=== PATIENT | female | born 1935 | race Hispanic/Latino ===

== ENCOUNTER 2017-02-21 11:51 | Emergency (ER) | payer MEDICARE, BC ==
[2017-02-21 12:04] VITALS: BMI 23.2
[2017-02-21 12:07] VITALS: TEMP 98.5
--- NOTE | 2017-02-21 14:01 | ED PDOC ---
Arrival/HPI - General Chief Complaint: Trauma Time Seen by Provider: 02/21/17 12:18 Historian: Patient - History of Present Illness Narrative History of Present Illness (Text): 02/21/17 13:44 82yo female with PMHx of hypertension and hyperlipdemia present with complaint of right clavicular pain s/p trauma tis morning. States she tripped while walking this morning and landed on her right arm. Denies hitting head any where. States she did not take any medication for pain. Denies focal weakness, headache, dizziness, nausea, vomiting, not on any anticoagulant. Past Medical History - Provider Review Nursing Documentation Reviewed: Yes - Infectious Disease Hx of Infectious Diseases: None - Tetanus Immunization Tetanus Immunization: Up to Date - Cardiac Hx Cardiac Disorders: Yes Hx Hypertension: Yes Hx Pacemaker: No - Pulmonary Hx Respiratory Disorders: Yes Hx Pneumonia: Yes (02-21-14) - Neurological Hx Paralysis: No - HEENT Hx HEENT Disorder: Yes ([place] B/L EARS, wears glassees) Other/Comment: uses b/l hearing aids - Renal Hx Renal Disorder: No - Endocrine/Metabolic Hx Endocrine Disorders: No - Hematological/Oncological Hx Blood Transfusions: No - Integumentary Hx Dermatological Disorder: Yes (CELLULITIS BLE) Other/Comment: notes from prior visit/triage: right lower extremity edema, redness, warm, tender to touch, making it difficult to walk, was weeping 3 wks ago, +2 pitting edema, worse the last 3 days, redness from below knee to foot and right thigh - Musculoskeletal/Rheumatological Hx Musculoskeletal Disorders: Yes Hx Unsteady Gait: Yes Other/Comment: walks with cane - Gastrointestinal Hx Gastrointestinal Disorders: Yes Hx Gastroesophageal Reflux: Yes Hx Pancreatitis: Yes (PANCREATIC NEOPLASM) - Genitourinary/Gynecological Hx Genitourinary Disorders: No - Psychiatric Hx Emotional Abuse: No Hx Physical Abuse: No Hx Substance Use: No - Surgical History Other/Comment: R knee surgery - Anesthesia Hx Anesthesia: Yes Hx Anesthesia Reactions: No Hx Malignant Hyperthermia: No - Suicidal Assessment Feels Threatened In Home Enviroment: No Family/Social History - Physician Review Nursing Documentation Reviewed: Yes Family/Social History: Unknown Family HX Smoking Status: Never Smoked Hx Alcohol Use: No Hx Substance Use: No Hx Substance Use Treatment: No Allergies/Home Meds Allergies/Adverse Reactions: Allergies No Known Allergies Allergy (Verified 02/21/17 12:03) Home Medications: Home Meds Medication Instructions Recorded Confirmed Atenolol [Tenormin] 50 mg PO DAILY 02/21/17 02/21/17 Hydrocodone/Ibuprofen 2 tab PO DAILY 02/21/17 02/21/17 [Hydrocodone-Ibuprofen 7.5-200] Lipase/Protease/Amylase [Creon Dr 1 tab PO TID 02/21/17 02/21/17 24,000 Units Capsule] Lisinopril [Zestril] 10 mg PO DAILY 02/21/17 02/21/17 Meloxicam [Mobic] 15 mg PO BID 02/21/17 02/21/17 Omeprazole [Omeprazole] 40 mg PO DAILY 02/21/17 02/21/17 Oxycodone HCl [Roxicodone] 5 mg PO TID 02/21/17 02/21/17 Simvastatin [Zocor] 20 mg PO DAILY 02/21/17 02/21/17 Spironolactone [Aldactone] 25 mg PO BID 02/21/17 02/21/17 Review of Systems - Physician Review All systems were reviewed & negative as marked: Yes - Review of Systems Constitutional: Normal Eyes: Normal ENT: Normal Respiratory: Normal Cardiovascular: Normal Gastrointestinal: Normal Genitourinary Female: Normal Musculoskeletal: Arthralgias (Right clavicle) Skin: Normal Neurological: Normal Endocrine: Normal Hemo/Lymphatic: Normal Psychiatric: Normal Physical Exam Vital Signs Reviewed: Yes Vital Signs Temp Pulse Resp BP Pulse Ox 02/21/17 15:29 63 12 110/60 97 02/21/17 12:06 98.5 F 62 18 146/69 99 Temperature: Afebrile Blood Pressure: Normal Pulse: Regular Respiratory Rate: Normal Appearance: Positive for: Well-Appearing, Non-Toxic, Comfortable Pain Distress: None Mental Status: Positive for: Alert and Oriented X 3 - Systems Exam Head: Present: Atraumatic, Normocephalic Pupils: Present: PERRL Extroacular Muscles: Present: EOMI Conjunctiva: Present: Normal Mouth: Present: Moist Mucous Membranes Neck: Present: Normal Range of Motion. No: MIDLINE TENDERNESS, Paraspinal Tenderness Respiratory/Chest: Present: Clear to Auscultation, Good Air Exchange. No: Respiratory Distress, Accessory Muscle Use Cardiovascular: Present: Regular Rate and Rhythm, Normal S1, S2. No: Murmurs Abdomen: Present: Normal Bowel Sounds. No: Tenderness, Distention, Peritoneal Signs Back: Present: Normal Inspection Upper Extremity: Present: Normal ROM (right shoulder), NORMAL PULSES, Tenderness (Right mid clavicle), Neurovascularly Intact. No: Cyanosis, Edema, Swelling, Erythema, Temperature Abnormalties, Deformity Lower Extremity: Present: Normal Inspection. No: Edema Neurological: Present: GCS=15, CN II-XII Intact, Speech Normal Skin: Present: Warm, Dry, Normal Color. No: Rashes Psychiatric: Present: Alert, Oriented x 3, Normal Insight, Normal Concentration Medical Decision Making ED Course and Treatment: 02/21/17 18:19 Pt was ambulatory and have no focal neurological deficit in ED. She refused head CT. She understood that CT was ordered to r/o any internal derangement. She stated she understand, but did not hit her head any where and don't want the Head Ct. CS/ Right shoulder/ Clavicle xray - No acute finding Result was DW the pt. Arm was placed on a sling She was DC home with a rx of Tramadol Referred to her PMD/Ortho. TRT ED for any new or worsening symptoms. - RAD Interpretation Radiology Orders: 02/21/17 12:32 CERVICAL SPINE >18YR W/OBLIQUE [RAD] Stat CLAVICLE RIGHT [RAD] Stat 02/21/17 12:33 SHOULDER RIGHT [RAD] Stat - Medication Orders Current Medication Orders: Discontinued Medications Tramadol HCl (Ultram) 50 mg PO STAT STA Stop: 02/21/17 12:38 Tramadol HCl (Ultram) 50 mg PO STAT STA Stop: 02/21/17 12:48 Last Admin: 02/21/17 12:56 Dose: 50 mg Disposition/Present on Arrival - Present on Arrival Any Indicators Present on Arrival: No History of DVT/PE: No History of Uncontrolled Diabetes: No Urinary Catheter: No History of Decub. Ulcer: No History Surgical Site Infection Following: None - Disposition Have Diagnosis and Disposition been Completed?: Yes Diagnosis: Clavicle pain Disposition: HOME/ ROUTINE Disposition Time: 15:05 Patient Plan: Discharge Condition: STABLE Discharge Instructions (ExitCare): Shoulder Sprain (ED) Additional Instructions: Follow up with your Doctor Return to ED for any new or worsening symptoms Prescriptions: traMADol [Ultram] 50 mg PO TID #12 tab Referrals: Jerome Gale MD [Primary Care Provider] - Follow up with primary Jerome Carmona III, MD [Medical Doctor] - Follow up with primary
[2017-02-21 15:30] VITALS: BP 110/60; PULSE 63; RESP 12; O2SAT 97
--- NOTE | 2017-02-21 17:35 | RAD ---
PROCEDURE: Cervical Spine Radiographs. HISTORY: Pain. COMPARISON: None. FINDINGS: BONES: Alignment maintained. No fracture. Dens Intact. DISC SPACES: There is fusion at the C4-5 and C5-6 levels. There is disc degeneration at the remaining levels. SOFT TISSUES: Normal. No prevertebral soft tissue swelling. OTHER FINDINGS: None. IMPRESSION: Fusion C4-5 and C5-6. No acute findings
--- NOTE | 2017-02-21 17:35 | RAD ---
PROCEDURE: Radiographs of the right clavicle. HISTORY: right clavicle pain s/p trauma COMPARISON: None. FINDINGS: RIGHT CLAVICLE: No fracture or focal lesion. JOINTS: Right acromioclavicular and glenohumeral joints are grossly unremarkable. SOFT TISSUES: Grossly unremarkable. OTHER FINDINGS: None. IMPRESSION: Normal radiographs of the right clavicle.
--- NOTE | 2017-02-21 17:36 | RAD ---
PROCEDURE: Radiographs of the Right Shoulder HISTORY: shoulder pain COMPARISON: No prior. FINDINGS: BONES: Normal. No fracture. JOINTS: Normal. Glenohumeral and acromioclavicular joints preserved. No osteoarthritis. SOFT TISSUES: Normal. OTHER FINDINGS: None. IMPRESSION: Normal radiographs of the right shoulder.
== END 2017-02-21 15:29 | disposition home or self-care (01) ==
LOC: ED 11:51
DX: M25.511 Pain in right shoulder (principal); I10 Essential (primary) hypertension

== ENCOUNTER 2017-05-22 06:06 | Emergency (ER) | payer MEDICARE, BC ==
[2017-05-22 06:07] VITALS: BMI 23.2
[2017-05-22 06:22] VITALS: TEMP 98.5
--- NOTE | 2017-05-22 06:35 | ED PDOC ---
Arrival/HPI - General Chief Complaint: Abdominal Pain Time Seen by Provider: 05/22/17 06:30 Historian: Patient - History of Present Illness Narrative History of Present Illness (Text): 05/22/17 06:31 Lazara Gerber is an 82 year old female, whose past medical history includes pancreatitis, GERD, arthritis, hypertension, and hyperlipidemia, who presents to the ED accompanied by daughter complaining of upper abdominal pain since yesterday. Patient also reports associated nausea and diarrhea, worse after eating or drinking. Patient denies any fever, chills, chest pain, shortness of breath, vomiting, urinary symptoms, neck pain, headache, dizziness, or any other complaints. PMD: Dr. Clary Gale Pain Management: Dr. Grewal Time/Duration: Other (yesterday) Symptom Onset: Gradual Symptom Course: Unchanged Activities at Onset: Light Context: Home Past Medical History - Provider Review Nursing Documentation Reviewed: Yes - Infectious Disease Hx of Infectious Diseases: None - Tetanus Immunization Tetanus Immunization: Up to Date - Cardiac Hx Cardiac Disorders: Yes Hx Hypertension: Yes Hx Pacemaker: No - Pulmonary Hx Respiratory Disorders: Yes Hx Pneumonia: Yes (02-21-14) - Neurological Hx Paralysis: No - HEENT Hx HEENT Disorder: Yes ([place] B/L EARS, wears glassees) Other/Comment: uses b/l hearing aids - Renal Hx Renal Disorder: No - Endocrine/Metabolic Hx Endocrine Disorders: No - Hematological/Oncological Hx Blood Transfusions: No - Integumentary Hx Dermatological Disorder: Yes (CELLULITIS BLE) Other/Comment: notes from prior visit/triage: right lower extremity edema, redness, warm, tender to touch, making it difficult to walk, was weeping 3 wks ago, +2 pitting edema, worse the last 3 days, redness from below knee to foot and right thigh - Musculoskeletal/Rheumatological Hx Musculoskeletal Disorders: Yes Hx Arthritis: Yes Hx Unsteady Gait: Yes Other/Comment: walks with cane - Gastrointestinal Hx Gastrointestinal Disorders: Yes Hx Gastroesophageal Reflux: Yes Hx Pancreatitis: Yes (PANCREATIC NEOPLASM) - Genitourinary/Gynecological Hx Genitourinary Disorders: No - Psychiatric Hx Emotional Abuse: No Hx Physical Abuse: No Hx Substance Use: No - Surgical History Other/Comment: R knee surgery - Anesthesia Hx Anesthesia: Yes Hx Anesthesia Reactions: No Hx Malignant Hyperthermia: No - Suicidal Assessment Feels Threatened In Home Enviroment: No Family/Social History - Physician Review Nursing Documentation Reviewed: Yes Family/Social History: Unknown Family HX Smoking Status: Never Smoked Hx Alcohol Use: No Hx Substance Use: No Hx Substance Use Treatment: No Allergies/Home Meds Allergies/Adverse Reactions: Allergies No Known Allergies Allergy (Verified 02/21/17 12:03) Home Medications: Home Meds Medication Instructions Recorded Confirmed Atenolol [Tenormin] 50 mg PO DAILY 05/22/17 05/22/17 Hydrocodone/Acetaminophen 1 tab PO BID 05/22/17 05/22/17 [Hydrocodone-Acetaminophen 325 mg-7 mg] Lipase/Protease/Amylase [Creon Dr 1 each PO TID 05/22/17 05/22/17 24,000 Units Capsule] Lisinopril [Zestril] 10 mg PO DAILY 05/22/17 05/22/17 Meloxicam [Mobic] 15 mg PO DAILY 05/22/17 05/22/17 Omeprazole 40 mg PO DAILY 05/22/17 05/22/17 Oxycodone HCl [Roxicodone] 5 mg PO TID 05/22/17 05/22/17 Simvastatin [Zocor] 20 mg PO DAILY 05/22/17 05/22/17 Spironolactone [Aldactone] 25 mg PO BID 05/22/17 05/22/17 Review of Systems - Physician Review All systems were reviewed & negative as marked: Yes - Review of Systems Constitutional: Normal. absent: Fevers Eyes: Normal ENT: Normal Respiratory: Normal. absent: SOB, Cough Cardiovascular: Normal. absent: Chest Pain Gastrointestinal: Abdominal Pain, Diarrhea, Nausea. absent: Vomiting Genitourinary Female: Normal. absent: Dysuria, Frequency, Hematuria, Urine Output Changes Musculoskeletal: Normal. absent: Back Pain, Neck Pain Skin: Normal. absent: Rash Neurological: Normal. absent: Headache, Dizziness Endocrine: Normal Hemo/Lymphatic: Normal Psychiatric: Normal Physical Exam Vital Signs Reviewed: Yes Vital Signs Temp Pulse Resp BP Pulse Ox 05/22/17 06:21 98.5 F 57 L 16 174/68 H 99 Temperature: Afebrile Blood Pressure: Hypertensive Pulse: Regular Respiratory Rate: Normal Appearance: Positive for: Well-Appearing, Non-Toxic, Comfortable Pain Distress: None Mental Status: Positive for: Alert and Oriented X 3 - Systems Exam Head: Present: Atraumatic, Normocephalic Pupils: Present: PERRL Extroacular Muscles: Present: EOMI Conjunctiva: Present: Normal Mouth: Present: Moist Mucous Membranes Neck: Present: Normal Range of Motion Respiratory/Chest: Present: Clear to Auscultation, Good Air Exchange. No: Respiratory Distress, Accessory Muscle Use Cardiovascular: Present: Regular Rate and Rhythm, Normal S1, S2. No: Murmurs Abdomen: Present: Tenderness (Upper abdominal tenderness), Normal Bowel Sounds. No: Distention, Peritoneal Signs, Rebound, Guarding Back: Present: Normal Inspection Upper Extremity: Present: Normal Inspection. No: Cyanosis, Edema Lower Extremity: Present: Normal Inspection. No: Edema Neurological: Present: GCS=15, CN II-XII Intact, Speech Normal Skin: Present: Warm, Dry, Normal Color. No: Rashes Psychiatric: Present: Alert, Oriented x 3, Normal Insight, Normal Concentration Medical Decision Making ED Course and Treatment: 05/22/17 06:31 Impression: 82 year old female c/o upper abdominal pain, nausea, and diarrhea since yesterday. Plan: -- EKG -- CXR -- Labs, lipase -- UA -- Reassess and disposition Progress Notes: - RAD Interpretation Radiology Orders: 05/22/17 06:39 CHEST PORTABLE [RAD] Stat 05/22/17 06:45 ABDOMEN COMPLETE [US] Stat - Medication Orders Current Medication Orders: Famotidine (Pepcid) 20 mg IVP STAT STA Stop: 05/22/17 06:46 Morphine Sulfate (Morphine) 2 mg IVP STAT STA Stop: 05/22/17 06:46 Ondansetron HCl (Zofran Inj) 4 mg IVP ONCE ONE Stop: 05/22/17 06:46 - Transfer of Care Patient signed out to Dr:: Aline Pending Labs:: labs/U/S/reassess/final disposition - Scribe Statement The provider has reviewed the documentation as recorded by the Scribtea Matthew All medical record entries made by the Scribe were at my direction and personally dictated by me. I have reviewed the chart and agree that the record accurately reflects my personal performance of the history, physical exam, medical decision making, and the department course for this patient. I have also personally directed, reviewed, and agree with the discharge instructions and disposition. Disposition/Present on Arrival - Present on Arrival Any Indicators Present on Arrival: No History of DVT/PE: No History of Uncontrolled Diabetes: No Urinary Catheter: No History of Decub. Ulcer: No History Surgical Site Infection Following: None - Disposition Have Diagnosis and Disposition been Completed?: No Diagnosis: Abdominal pain Disposition Time: 07:00 Condition: STABLE Forms: [employer] ([place])
[2017-05-22] MEDS ORDERED: Morphine 2 mg/ml ISec IVP STA (06:45)
[2017-05-22 07:06] LABS: HEMATOCRIT 37.8 % (36.0-48.0); MEAN CELL VOLUME 96.4 fl (80.0-105.0); MEAN CORPUSCULAR HEMOGLOBIN 32.4 pg (25.0-35.0); MEAN CORPUSCULAR HGB CONC 33.6 g/dl (31.0-37.0); MEAN PLATELET VOLUME 10.4 fl (7.0-11.0); RED CELL DISTRIBUTION WIDTH 13.3 % (11.5-14.5); WHITE BLOOD COUNT 6.4 10^3/ul (4.5-11.0)
[2017-05-22 07:15] LABS: ALB/GLOB RATIO 1.4 (1.1-1.8); ALKALINE PHOSPHATASE 93 U/L (38-126); ALT/SGPT 29 U/L (7-56); AST/SGOT 41 U/L (14-36); BILIRUBIN,TOTAL 0.6 mg/dL (0.2-1.3); BLOOD UREA NITROGEN 22 mg/dL (7-21); CALCIUM 9.4 mg/dL (8.4-10.5); CARBON DIOXIDE 29 mmol/L (21-33); CHLORIDE 107 mmol/L (98-107); GFR AFRICAN-AMERICAN > 60; GLUCOSE,RANDOM 91 mg/dL (70-110); LIPASE 125 U/L (23-300); POTASSIUM 3.9 mmol/L (3.6-5.0); SODIUM 142 mmol/L (132-148); TOTAL PROTEIN 6.5 g/dL (5.8-8.3)
[2017-05-22] MEDS ORDERED: Sodium Chloride 0.9% 1,000 ML IV SCH (07:15)
--- NOTE | 2017-05-22 08:15 | ED PDOC ---
Physical Exam Vital Signs Reviewed: Yes Vital Signs Temp Pulse Resp BP Pulse Ox 05/22/17 08:32 55 L 16 145/58 L 97 05/22/17 06:21 98.5 F 57 L 16 174/68 H 99 Temperature: Afebrile Blood Pressure: Hypertensive Pulse: Regular Respiratory Rate: Normal Appearance: Positive for: Well-Appearing Pain Distress: None Mental Status: Positive for: Alert and Oriented X 3 Medical Decision Making ED Course and Treatment: 05/22/17 08:15 sign out from overnight, pt with epigastric/RUQ pain RUQ tenderness to palpation on exam with no peritoneal signs . Pt appears in no distress describes pain as burning, post-prandial US results pending Report Date : 05/22/2017 09:55:50 Procedure: Abdominal ultrasound Dictator : Hernan Jordan MD IMPRESSION: No evidence of cholelithiasis or nephrolithiasis. Report Date : 05/22/2017 11:44:01 PROCEDURE: CT Abdomen and Pelvis with contrast Dictator : Alphonse Marcial MD IMPRESSION: 1. Sigmoid diverticulosis without diverticulitis. Relatively prominent fecal loading seen throughout the colon limiting the evaluation of large bowel. Obstruction measure edema, ascites or free intrarenal gas. 2. Stable appearing pancreatic cystic changes seen at the body of the pancreas dating back at least to prior abdomen MRI dated 04/01/2013 without interval change in overall size/volume. No significant pancreatic ductal dilatation identified. 3. Multiple tiny lucencies seen scattered throughout the renal parenchyma which are too small to characterize. No obstructive uropathy bilaterally. 4. Cardiomegaly with diminished pericardial effusion evident. 05/22/17 11:[address] Dos Santos, in detail, pt's GI specialist recommends dc home with outpatient f/u this upcoming . Asked to give Rx omeprazole 40mg PO daily, and kerafate kandice 1g 4 times daily. States she has a hx of pancr. mass, possibly cancerous pt in no distress at this time, states she feels better 05/22/17 12:29 On reevaluation, patient reports that she feels much better and would like to be discharged home. Patient's repeat abdominal exam is soft, nontender, non distended with positive bowel sounds in all 4 quadrants and no peritoneal signs. Patient is tolerating PO without any difficulty. Pt states she understands to return to the ER right away for new or worsening symptoms or for inability to f/u with PMD or specialist as instructed. Patient states that she fully agrees with and understands discharge instructions. States that she agrees with the plan and disposition. Verbalized and repeated discharge instructions and plan. I have given the patient opportunity to ask any additional questions. - Lab Interpretations Lab Results: 05/22/17 06:55 05/22/17 06:55 Lab Results 05/22/17 11:50: Lactate Dehydrogenase 475, Total Creatine Kinase 43, Troponin I Pending 05/22/17 08:08: Lactate Dehydrogenase 594, Total Creatine Kinase 49, Troponin I 0.01 D 05/22/17 08:08: PT 10.7, INR 0.99, APTT 26.1 05/22/17 06:55: WBC 6.4, RBC 3.92, Hgb 12.7, Hct 37.8, MCV 96.4, MCH 32.4, MCHC 33.6, RDW 13.3, Plt Count 171, MPV 10.4 05/22/17 06:55: Sodium 142, Potassium 3.9, Chloride 107, Carbon Dioxide 29, Anion Gap 10, BUN 22 H, Creatinine 0.8, Est GFR ( Amer) > 60, Est GFR ( Non-Af Amer) > 60, Random Glucose 91, Calcium 9.4, Total Bilirubin 0.6, AST 41 H , ALT 29, Alkaline Phosphatase 93, Total Protein 6.5, Albumin 3.8, Globulin 2.7 , Albumin/Globulin Ratio 1.4, Lipase 125 - RAD Interpretation Radiology Orders: 05/22/17 06:39 CHEST PORTABLE [RAD] Stat 05/22/17 06:45 ABDOMEN COMPLETE [US] Stat 05/22/17 10:12 ABD & PELVIS IV CONTRAST ONLY [CT] Stat - Medication Orders Current Medication Orders: Sodium Chloride (Sodium Chloride 0.9%) 1,000 mls @ 100 mls/hr IV .Q10H DAVID Last Admin: 05/22/17 07:08 Dose: 100 mls/hr eMAR Start Stop Document 05/22/17 07:08 YP (Rec: 05/22/17 07:08 [place] [facility] [id number] Intravenous Solution Start Date 05/22/17 Start Time 07:08 Discontinued Medications Al Hydrox/Mg Hydrox/Simethicone (Maalox Plus 30 Ml) 30 ml PO STAT STA Stop: 05/22/17 10:13 Last Admin: 05/22/17 11:47 Dose: 30 ml Belladonna/Phenobarbital ( Elixir) 5 ml PO STAT STA Stop: 05/22/17 10:13 Last Admin: 05/22/17 11:47 Dose: 5 ml Famotidine (Pepcid) 20 mg IVP STAT STA Stop: 05/22/17 06:46 Last Admin: 05/22/17 06:59 Dose: 20 mg IVP Administration Document 05/22/17 06:59 YP (Rec: 05/22/17 06:59 [facility] [id number] Charges for Administration # of IVP Administrations 1 Iohexol (Omnipaque 350 100 Ml) Confirm Administered Dose 350 mg .ROUTE .STK-MED ONE Stop: 05/22/17 10:38 Lidocaine (Lidocaine 2% Viscous) 15 ml PO STAT STA Stop: 05/22/17 10:13 Lidocaine HCl (Lidocaine 2% Viscous) 15 ml PO ONCE ONE Stop: 05/22/17 10:31 Ondansetron HCl (Zofran Inj) 4 mg IVP ONCE ONE Stop: 05/22/17 06:46 Last Admin: 05/22/17 06:59 Dose: 4 mg IVP Administration Document 05/22/17 06:59 YP (Rec: 05/22/17 06:59 [facility] [id number] Charges for Administration # of IVP Administrations 1 Disposition/Present on Arrival - Present on Arrival Any Indicators Present on Arrival: No History of DVT/PE: No History of Uncontrolled Diabetes: No Urinary Catheter: No History of Decub. Ulcer: No History Surgical Site Infection Following: None - Disposition Have Diagnosis and Disposition been Completed?: Yes Diagnosis: Abdominal pain Disposition: HOME/ ROUTINE Disposition Time: 12:32 Patient Plan: Discharge Patient Problems: Current Active Problems Problem Status Onset Abdominal pain Acute Condition: GOOD Discharge Instructions (ExitCare): Abdominal Pain (ED) Additional Instructions: PLEASE FOLLOW UP WITH DR. DOS SANTOS THIS UPCOMING MONDAY PLEASE RETURN TO THE EMERGENCY DEPARTMENT FOR NEW OR WORSENING SYMPTOMS. RETURN RIGHT AWAY IF YOU CANNOT FOLLOW UP WITH YOUR PRIMARY CARE DOCTOR IN 1-2 DAYS. Prescriptions: Omeprazole 40 mg PO DAILY #12 capsule.dr Hahn [Carafate] 1 gm PO QID #12 dose Referrals: Jerome Gale MD [Primary Care Provider] - Follow up with primary Ranulfo Dos Santos MD [Staff Provider] - Follow up with primary Forms: [employer] (Slovenian)
[2017-05-22 08:39] LABS: INR 0.99 (0.93-1.08); PARTIAL THROMBOPLASTIN TIME 26.1 Seconds (23.7-30.8)
[2017-05-22 08:50] LABS: TROPONIN I 0.01 ng/mL
--- NOTE | 2017-05-22 09:57 | US ---
HISTORY: Upper abdominal pain COMPARISON: Comparison made with prior abdominal ultrasound 01/19/2015 TECHNIQUE: Sonographic evaluation of the abdomen. FINDINGS: LIVER: The liver measures approximately 15 cm cc dimension. Smooth contour and normal cm. echogenicity of the liver parenchyma. No mass. No intrahepatic bile duct dilatation. GALLBLADDER: Unremarkable. No gallstones. . No evidence of pericholecystic fluid collections or sonographic Napier sign COMMON BILE DUCT: Measures approximately 8.4 mm which may in part be due to advanced age. No stones. No dilatation. PANCREAS: Unremarkable as visualized. No mass. No ductal dilatation. RIGHT KIDNEY: Measures approximately 9.5 x 4.2 x 4.6cm. Normal echogenicity. No calculus, mass, or hydronephrosis. LEFT KIDNEY: Measures approximately 10.1 x 4.7 x 3.9cm. Normal echogenicity. No calculus, mass, or hydronephrosis. SPLEEN: Normal in size and contour. No mass. AORTA: No aneurysmal dilatation. IVC: Unremarkable. OTHER FINDINGS: None. IMPRESSION: No evidence of cholelithiasis or nephrolithiasis.
[2017-05-22] MEDS ORDERED: Atrop/Hyosc/Scopal/PB Elixir (120 ml) PO STA (10:12)
[2017-05-22] MEDS ORDERED: Alum-Mag Hydrox-Simethicone Susp (30 mL) PO STA (10:12)
[2017-05-22] MEDS ORDERED: Lidocaine 2% Viscous 100 ml PO STA (10:12)
[2017-05-22] MEDS ORDERED: Iohexol 350 MG/100 ML VIAL ONE (10:37)
--- NOTE | 2017-05-22 11:45 | CT ---
PROCEDURE: CT Abdomen and Pelvis with contrast HISTORY: abd pain COMPARISON: And pelvis CT without contrast 02/20/2017. TECHNIQUE: Contrast dose: Omnipaque 350, 100 cc. Radiation dose: Total exam DLP = 275.31 mGy-cm. This CT exam was performed using one or more of the following dose reduction techniques: Automated exposure control, adjustment of the mA and/or kV according to patient size, and/or use of iterative reconstruction technique. FINDINGS: LOWER THORAX: Imaged lung bases reveal increasing medial basilar atelectasis/fibrosis at the right. Cardiomegaly appears stable. Diminished pericardial effusion identified, minimal residual. LIVER: Unremarkable. No gross lesion or ductal dilatation. GALLBLADDER AND BILE DUCTS: Unremarkable. PANCREAS: Multiple cysts in the pancreatic body are again identified with the more proximal appearing stable in size at 1.6 cm greatest dimension. There is an aggregate of 3-4 small cysts identified at the body just distal to this initial, more proximal cyst, which appear to have a stable overall volume, measuring an aggregate of 2.3 x 1.6 cm currently and previously measuring 1.7 x 2.3 cm. This is compared to a prior and pelvis CT exam dated 05/22/2017 and distant prior MRI dated 04/01/2013. SPLEEN: Unremarkable. ADRENALS: Unremarkable. No mass. KIDNEYS AND URETERS: Multiple tiny lucencies scattered throughout both kidneys which are too small to characterize. No obstructive uropathy bilaterally or radiodense urolithiasis. No perinephric reaction bilaterally. VASCULATURE: Unremarkable. No aortic aneurysm. BOWEL: The bowel is not appear obstructed although there is moderate fecal loading throughout the large bowel appears sigmoid diverticulosis identified without definite acute diverticulitis. The stomach is collapsed and poorly evaluated. The lack of oral contrast limits the evaluation of the gastrointestinal tract. APPENDIX: Normal appendix. PERITONEUM: Unremarkable. No free fluid. No free air. LYMPH NODES: Unremarkable. No enlarged lymph nodes. BLADDER: Unremarkable. REPRODUCTIVE: Unremarkable. BONES: No acute fracture. OTHER FINDINGS: None. IMPRESSION: 1. Sigmoid diverticulosis without diverticulitis. Relatively prominent fecal loading seen throughout the colon limiting the evaluation of large bowel. Obstruction measure edema, ascites or free intrarenal gas. 2. Stable appearing pancreatic cystic changes seen at the body of the pancreas dating back at least to prior abdomen MRI dated 04/01/2013 without interval change in overall size/volume. No significant pancreatic ductal dilatation identified. 3. Multiple tiny lucencies seen scattered throughout the renal parenchyma which are too small to characterize. No obstructive uropathy bilaterally. 4. Cardiomegaly with diminished pericardial effusion evident.
--- NOTE | 2017-05-22 12:08 | RAD ---
HISTORY: abdominal pain COMPARISON: No prior. FINDINGS: LUNGS: There may be some minimal atelectasis and or scarring left lung base with what could represent some minor tenting of the hemidiaphragm. Lung pa also appear slightly overinflated ; rule out chronic changes of emphysema or COPD. PLEURA: No significant pleural effusion identified, no pneumothorax apparent. CARDIOVASCULAR: Heart is mildly enlarged. OSSEOUS STRUCTURES: Three level ACDF plate overlying the mid -lower cervical spine again noted. Additionally, the superior margins of bilateral Zuñiga rods over the upper lumbar region also noted VISUALIZED UPPER ABDOMEN: Normal. OTHER FINDINGS: None. IMPRESSION: There may be some minimal atelectasis and or scarring left lung base with what could represent some minor tenting of the hemidiaphragm Lung pa also appear slightly overinflated ; rule out chronic changes of emphysema or COPD.
--- NOTE | 2017-05-22 12:10 | CARD ---
APPROVED REPORT EKG Measurement Heart [id number] <Conclusion> Sinus bradycardia Otherwise normal ECG
[2017-05-22 12:34] LABS: TROPONIN I 0.01 ng/mL
[2017-05-22 12:47] VITALS: BP 159/74; PULSE 60; RESP 17; O2SAT 98
== END 2017-05-22 12:50 | disposition home or self-care (01) ==
LOC: ED 06:06
DX: R10.9 Unspecified abdominal pain (principal); I10 Essential (primary) hypertension; K21.9 Gastro-esophageal reflux disease without esophagitis
CPT/HCPCS: 71010; 74177; 76700; 80053; 82550; 83615; 83690; 84484; 85027; 85610; 85730; 93005; 96374; 96375; 99284; J2405; J7040; Q9967

== ENCOUNTER 2017-06-15 08:40 | Day surgery (SDC) | payer MEDICARE, BC ==
[2017-06-09 13:46] VITALS: BMI 23.0
[2017-06-15] MEDS ORDERED: Etomidate 20 mg/10ml Inj IV ONE (09:41)
[2017-06-15] MEDS ORDERED: Labetalol 5 mg/ml Inj 20ML ONE (09:49)
[2017-06-15] MEDS ORDERED: Lidocaine 2% Inj (20ml) ONE (09:49)
[2017-06-15] MEDS ORDERED: Sodium Chloride 0.9% 1,000 ML IV SCH (10:15)
[2017-06-15 10:32] VITALS: O2SAT 98
[2017-06-15 10:59] VITALS: PULSE 63; RESP 19; TEMP 97.9
[2017-06-15 11:31] VITALS: BP 140/59
== END 2017-06-15 11:35 | disposition home or self-care (01) ==
LOC: ENDO 08:40
PROVIDERS: ATTEND Specialist
DX: K31.7 Polyp of stomach and duodenum (principal); K44.9 Diaphragmatic hernia without obstruction or gangrene; K21.9 Gastro-esophageal reflux disease without esophagitis
CPT/HCPCS: 43239; 88305; 88342; J7040 ×2

== ENCOUNTER 2018-06-18 04:10 | Observation (INO) | payer MEDICARE, BC ==
[2018-06-18 04:16] VITALS: BMI 24.7
--- NOTE | 2018-06-18 04:17 | ED PDOC ---
Arrival/HPI - General Time Seen by Provider: 06/18/18 04:11 Historian: Patient - History of Present Illness Narrative History of Present Illness (Text): 06/18/18 04:17 Lazara Gerber is an 83 year old female, whose past medical history includes pancreatitis, GERD, arthritis, hypertension, and hyperlipidemia, who presents to the ED brought in by EMS complaining of abdominal pain. Patient states she has been experiencing burning abdominal pain since yesterday with associated nausea and decreased PO intake. Patient notes she recently received the pneumovax 2 days prior. Patient denies any fever, chills, chest pain, shortness of breath, vomiting, diarrhea,neck pain, headache, dizziness, or any other complaints. PMD: Dr. Gale Symptom Onset: Gradual Symptom Course: Unchanged Activities at Onset: Light Context: Home Past Medical History - Provider Review Nursing Documentation Reviewed: Yes - Infectious Disease Hx of Infectious Diseases: None - Tetanus Immunization Tetanus Immunization: Up to Date - Cardiac Hx Pacemaker: No - Pulmonary Hx Respiratory Disorders: Yes Hx Pneumonia: Yes (02-21-14) - Neurological Hx Paralysis: No - HEENT Hx HEENT Disorder: Yes ([place] B/L EARS, wears glassees) Other/Comment: uses b/l hearing aids - Renal Hx Renal Disorder: No - Endocrine/Metabolic Hx Endocrine Disorders: No - Hematological/Oncological Hx Blood Transfusions: No - Integumentary Hx Dermatological Disorder: Yes (CELLULITIS BLE) Other/Comment: notes from prior visit/triage: right lower extremity edema, redness, warm, tender to touch, making it difficult to walk, was weeping 3 wks ago, +2 pitting edema, worse the last 3 days, redness from below knee to foot and right thigh - Musculoskeletal/Rheumatological Hx Musculoskeletal Disorders: Yes - Gastrointestinal Hx Gastrointestinal Disorders: Yes Hx Gastroesophageal Reflux: Yes Hx Pancreatitis: Yes (PANCREATIC NEOPLASM) - Genitourinary/Gynecological Hx Genitourinary Disorders: No - Psychiatric Hx Emotional Abuse: No Hx Physical Abuse: No Hx Substance Use: No - Surgical History Other/Comment: R knee surgery - Anesthesia Hx Anesthesia Reactions: No Hx Malignant Hyperthermia: No - Suicidal Assessment Feels Threatened In Home Enviroment: No Family/Social History - Physician Review Nursing Documentation Reviewed: Yes Family/Social History: Unknown Family HX Smoking Status: Never Smoked Hx Alcohol Use: No Hx Substance Use: No Hx Substance Use Treatment: No Allergies/Home Meds Allergies/Adverse Reactions: Allergies No Known Allergies Allergy (Verified 06/18/18 04:16) Home Medications: Home Meds Medication Instructions Recorded Confirmed Atenolol [Tenormin] 50 mg PO DAILY 05/22/17 06/18/18 Lipase/Protease/Amylase [Creon Dr 1 cap PO TID 05/22/17 06/18/18 24,000 Units Capsule] Lisinopril [Zestril] 10 mg PO DAILY 05/22/17 06/18/18 Simvastatin [Zocor] 20 mg PO DAILY 05/22/17 06/18/18 Spironolactone [Aldactone] 25 mg PO BID 05/22/17 06/18/18 Hydrocodone/Acetaminophen [Vicodin 1 tab PO BID PRN 06/18/18 06/18/18 Es 300 mg-7.5 mg] Review of Systems - Physician Review All systems were reviewed & negative as marked: Yes - Review of Systems Constitutional: Normal. absent: Fevers Eyes: Normal ENT: Normal Respiratory: Normal. absent: SOB, Cough Cardiovascular: Normal. absent: Chest Pain Gastrointestinal: Abdominal Pain, Nausea, Appetite Changes (+decreased PO intake) Genitourinary Female: Normal Musculoskeletal: Normal Skin: Normal Neurological: Normal Endocrine: Normal Hemo/Lymphatic: Normal Psychiatric: Normal Physical Exam Vital Signs Reviewed: Yes Temperature: Afebrile Blood Pressure: Normal Pulse: Regular Respiratory Rate: Normal Appearance: Positive for: Well-Appearing, Non-Toxic, Comfortable Pain Distress: None Mental Status: Positive for: Alert and Oriented X 3 - Systems Exam Head: Present: Atraumatic, Normocephalic Pupils: Present: PERRL Extroacular Muscles: Present: EOMI Conjunctiva: Present: Normal Mouth: Present: Moist Mucous Membranes Neck: Present: Normal Range of Motion Respiratory/Chest: Present: Clear to Auscultation, Good Air Exchange. No: Respiratory Distress, Accessory Muscle Use Cardiovascular: Present: Regular Rate and Rhythm, Normal S1, S2. No: Murmurs Abdomen: Present: Tenderness (mid/upper), Normal Bowel Sounds. No: Distention, Peritoneal Signs Back: Present: Normal Inspection Upper Extremity: Present: Normal Inspection. No: Cyanosis, Edema Lower Extremity: Present: Normal Inspection. No: Edema Neurological: Present: GCS=15, CN II-XII Intact, Speech Normal Skin: Present: Warm, Dry, Normal Color. No: Rashes Psychiatric: Present: Alert, Oriented x 3, Normal Insight, Normal Concentration Medical Decision Making ED Course and Treatment: 06/18/18 04:17 Impression: 83 year old female complaining of epigastric abdominal pain, nausea, and decreased PO intake since yesterday. Plan: -- CT Abdomen and Pelvis -- EKG -- Labs, lipase -- Zofran -- Protonix -- Toradol -- Reassess and disposition Prior Visits: Notes and results from previous visits were reviewed. On 05/22/2017, patient was seen in the Emergency department for upper abdominal pain, nausea, and vomiting. Patient was discharged home. Progress Notes: Reviewed EKG, NSR at 70 bpm. PACs. No acute changes. 06/18/18 05:46 Chest X-ray reviewed, shows no acute processes. 06/18/18 06:31 Case was d/w PMD .Accepts to his service. on consult. - Lab Interpretations I have reviewed the lab results: Yes - RAD Interpretation Manager Test: ED Physician - EKG Interpretation Interpreted by ED Physician: Yes Type: 12 lead EKG - Scribe Statement The provider has reviewed the documentation as recorded by the Stas Matthew Provider Scribe Attestation: All medical record entries made by the Scribe were at my direction and personally dictated by me. I have reviewed the chart and agree that the record accurately reflects my personal performance of the history, physical exam, medical decision making, and the department course for this patient. I have also personally directed, reviewed, and agree with the discharge instructions and disposition. Disposition/Present on Arrival - Present on Arrival Any Indicators Present on Arrival: No History of DVT/PE: No History of Uncontrolled Diabetes: No Urinary Catheter: No History of Decub. Ulcer: No History Surgical Site Infection Following: None - Disposition Have Diagnosis and Disposition been Completed?: Yes Diagnosis: Abdominal pain Disposition: HOSPITALIZED Disposition Time: 06:31 Patient Plan: Observation Condition: STABLE Referrals: Jerome Gale MD [Primary Care Provider] - Follow up with primary
[2018-06-18 05:00] LABS: HEMOGLOBIN 14.3 g/dL (12.0-16.0); MEAN CELL VOLUME 95.9 fl (80.0-105.0); MEAN CORPUSCULAR HEMOGLOBIN 32.4 pg (25.0-35.0); MEAN CORPUSCULAR HGB CONC 33.7 g/dl (31.0-37.0); MEAN PLATELET VOLUME 11.2 fl (7.0-11.0); RBC 4.42 10^6/uL (3.5-6.1); RED CELL DISTRIBUTION WIDTH 13.3 % (11.5-14.5); WHITE BLOOD COUNT 8.2 10^3/ul (4.5-11.0)
[2018-06-18 05:07] LABS: ALB/GLOB RATIO 1.3 (1.1-1.8); ALBUMIN 4.3 g/dL (3.0-4.8); ALT/SGPT 36 U/L (7-56); AST/SGOT 37 U/L (14-36); BLOOD UREA NITROGEN 22 mg/dL (7-21); CALCIUM 9.4 mg/dL (8.4-10.5); GFR NON-AFRICAN AMERICAN > 60; LIPASE 136 U/L (23-300)
[2018-06-18] MEDS: Sodium Chloride 0.9% 1,000 ML IV SCH ×2 (05:16→21:26)
[2018-06-18] MEDS ORDERED: Pantoprazole 40 mg EC Tab PO SCH (06:00)
[2018-06-18] MEDS ORDERED: Potassium Chloride 20 mEq ER Tab PO STA (06:08)
[2018-06-18] MEDS ORDERED: Alum-Mag Hydrox-Simethicone Susp (30 mL) PO STA ×2 (06:12→08:54)
[2018-06-18] MEDS ORDERED: Sodium Chloride 0.9% 1,000 ML IV STA (06:33)
[2018-06-18] MEDS ORDERED: Morphine 2 mg/ml ISec IVP STA (07:12)
[2018-06-18] MEDS ORDERED: Magnesium Citrate Oral SOL (300 ml) PO ONE (07:48)
[2018-06-18] MEDS ORDERED: Mineral Oil Enema 135 ml RC ONE (07:48)
--- NOTE | 2018-06-18 08:14 | CP.PCM.CON ---
<AlphonseAnkit barroso - Last Filed: 06/18/18 09:57> History of Present Illness - History of Present Illness History of Present Illness: General Surgery Consult Note for Dr. Gale Ms. Gerber is a 83 y.o F with PMH of chronic pancreatitis, chronic pain, and arthritis presenting to the ED with complaint of burning epigastric pain. She states that the pain is localized bilaterally throughout her epigastrium. She reports that this happens to her frequently however this time it just seams worse. She states that the pain began yesterday around 2 pm, and has been constant since that time. She currently rates the pain as a 10/10. She states that she had a ham/cheese sandwich for lunch prior to the beginning of the pain. She also states that she has been experiencing multiple bouts of non-bloody diarrhea for the past day. She denies fever, chills, nausea, vomiting. SocHx: Denies alcohol, tobacco, illicit drug use. Indicates the use of medical marijuana for pain. PMHx: Minimally invasive pancreatic ductal neoplasia, HTN, spinal stenosis, HLD, arthritis Allergies: NKA PSHx: Back surgery, ex lap PMD: Dr. Gale Review of Systems - Review of Systems Review of Systems: 12 point review of symptoms negative except for joint pain and abdominal pain Past Patient History - Infectious Disease Hx of Infectious Diseases: None - Tetanus Immunizations Tetanus Immunization: Up to Date - Past Social History Smoking Status: Never Smoked - CARDIAC Hx Pacemaker: No - PULMONARY Hx Respiratory Disorders: Yes Hx Pneumonia: Yes (02-21-14) - NEUROLOGICAL Hx Paralysis: No - HEENT Hx HEENT Problems: Yes ([place] B/L EARS, wears glassees) Other/Comment: uses b/l hearing aids - RENAL Hx Chronic Kidney Disease: No - ENDOCRINE/METABOLIC Hx Endocrine Disorders: No - HEMATOLOGICAL/ONCOLOGICAL Hx Blood Transfusions: No - INTEGUMENTARY Hx Dermatological Problems: Yes (CELLULITIS BLE) Other/Comment: notes from prior visit/triage: right lower extremity edema, redness, warm, tender to touch, making it difficult to walk, was weeping 3 wks ago, +2 pitting edema, worse the last 3 days, redness from below knee to foot and right thigh - MUSCULOSKELETAL/RHEUMATOLOGICAL Hx Musculoskeletal Disorders: Yes - GASTROINTESTINAL Hx Gastrointestinal Disorders: Yes Hx Gastroesophageal Reflux: Yes Hx Pancreatitis: Yes (PANCREATIC NEOPLASM) - GENITOURINARY/GYNECOLOGICAL Hx Genitourinary Disorders: No - PSYCHIATRIC Hx Emotional Abuse: No Hx Physical Abuse: No Hx Substance Use: No - SURGICAL HISTORY Other/Comment: R knee surgery - ANESTHESIA Hx Anesthesia Reactions: No Hx Malignant Hyperthermia: No Meds Allergies/Adverse Reactions: Allergies Allergy/AdvReac Type Severity Reaction Status Date / Time No Known Allergies Allergy Verified 06/18/18 04:16 - Medications Medications: Current Medications Sodium Chloride (Sodium Chloride 0.9%) 1,000 mls @ 125 mls/hr IV .Q8H DAVID Last Admin: 06/18/18 05:16 Dose: 125 mls/hr Sodium Chloride (Sodium Chloride 0.9%) 1,000 mls @ 100 mls/hr IV .Q10H STA Stop: 06/18/18 16:32 Last Admin: 06/18/18 07:27 Dose: 100 mls/hr Physical Exam - Constitutional Appears: Non-toxic, No Acute Distress - Head Exam Head Exam: ATRAUMATIC, NORMOCEPHALIC - Eye Exam Eye Exam: EOMI - ENT Exam ENT Exam: Mucous Membranes Moist - Respiratory Exam Respiratory Exam: NORMAL BREATHING PATTERN - Cardiovascular Exam Cardiovascular Exam: +S1, +S2 - GI/Abdominal Exam GI & Abdominal Exam: Soft, Tenderness. absent: Distended, Firm, Guarding, Hernia Additional comments: Tenderness in the RUQ - Neurological Exam Neurological exam: Alert, Oriented x3 - Psychiatric Exam Psychiatric exam: Normal Affect, Normal Mood - Skin Skin Exam: Dry, Intact Results - Vital Signs Recent Vital Signs: Last Vital Signs Temp 98.5 F 06/18/18 06:32 Pulse 74 06/18/18 07:32 Resp 18 06/18/18 07:32 BP 144/76 06/18/18 07:32 Pulse Ox 98 06/18/18 07:32 - Labs Result Diagrams: 06/18/18 04:30 06/18/18 04:30 Labs: Laboratory Results - last 24 hr 06/18/18 06/18/18 04:30 04:30 WBC 8.2 D RBC 4.42 Hgb 14.3 Hct 42.4 MCV 95.9 MCH 32.4 MCHC 33.7 RDW 13.3 Plt Count 204 MPV 11.2 H Sodium 140 Potassium 3.2 L Chloride 104 Carbon Dioxide 27 Anion Gap 12 BUN 22 H Creatinine 0.6 L Est GFR ( Amer) > 60 Est GFR (Non-Af Amer) > 60 Random Glucose 110 Calcium 9.4 Total Bilirubin 0.6 AST 37 H ALT 36 Alkaline Phosphatase 148 H D Total Protein 7.6 Albumin 4.3 Globulin 3.4 Albumin/Globulin Ratio 1.3 Lipase 136 - Imaging and Cardiology CT scan - abdomen Status: Image reviewed by me, Report reviewed by me CT scan - pelvis Status: Image reviewed by me, Report reviewed by me Assessment & Plan - Assessment and Plan (Free Text) Assessment: 83F with chronic pancreatitis who is presenting with abdominal pain NPO IVF Mag Citrate Fleets enema Abdominal US D/W Dr. Baljinder Chen PGY3 <Jerome Gael - Last Filed: 06/21/18 17:22> Results - Vital Signs Recent Vital Signs: Last Vital Signs Temp 97.6 F 06/19/18 08:56 Pulse 78 06/19/18 10:01 Resp 18 06/19/18 08:56 BP 131/62 06/19/18 10:01 Pulse Ox 98 06/19/18 08:56 - Labs Result Diagrams: 06/19/18 06:10 06/19/18 06:10 Assessment & Plan - Assessment and Plan (Free Text) Assessment: The above is an Admitting History & Physical Not a consult Colton Gale MD FACS
--- NOTE | 2018-06-18 10:08 | CARD ---
APPROVED REPORT Date of service: 06/18/2018 EKG Measurement Heart [id number] <Conclusion> Sinus rhythm with premature atrial complexes PRWP
--- NOTE | 2018-06-18 10:26 | US ---
Date of service: 06/18/2018 HISTORY: RUQ tenderness COMPARISON: Comparison made with prior abdominal ultrasound 05/22/2017 TECHNIQUE: Sonographic evaluation of the abdomen. FINDINGS: LIVER: Measures approximately 14.2 cm. Normal echogenicity of the liver parenchyma. No mass. No intrahepatic bile duct dilatation. GALLBLADDER: Unremarkable. No gallstones. No pericholecystic fluid collections or sonographic Napier sign COMMON BILE DUCT: Dilated measuring approximately 11 mm. No stones. No dilatation. PANCREAS: Unremarkable as visualized. No mass. Pancreatic duct is visible though not significantly dilated.. RIGHT KIDNEY: Measures 8.5 x 4.6 x 3.8cm. Normal echogenic the the ity. No calculus, mass, or hydronephrosis. LEFT KIDNEY: Measures 10.7 x 4.6 x 4.8cm. Normal echogenicity. No calculus, mass, or hydronephrosis. SPLEEN: Normal in size and contour. No mass. AORTA: No aneurysmal dilatation.. Abdominal aortic atherosclerotic calcifications/mural plaque present IVC: Unremarkable. OTHER FINDINGS: None. IMPRESSION: Dilatation of the common bile duct which could be due to advanced age. No evidence of cholelithiasis or choledocholithiasis..
--- NOTE | 2018-06-18 11:24 | RAD ---
Date of service: 06/18/2018 PROCEDURE: CHEST RADIOGRAPH, 1 VIEW HISTORY: abdominal pain COMPARISON: 05/22/2017 FINDINGS: LUNGS: Clear. PLEURA: No pneumothorax or pleural fluid seen. CARDIOVASCULAR: Atherosclerotic calcifications identified primarily aortic arch. No radiographic findings to suggest acute or significant cardiovascular disease. OSSEOUS STRUCTURES: No significant abnormalities. VISUALIZED UPPER ABDOMEN: Normal. OTHER FINDINGS: None. IMPRESSION: No active disease.No significant interval change compared to the prior examination(s).
--- NOTE | 2018-06-18 12:04 | CP.PCM.CON ---
<Ihsan Alexis - Last Filed: 06/18/18 12:12> History of Present Illness - History of Present Illness History of Present Illness: PGY-2 GI consult note for Dr Lacy Mrs Gerber is a 83 year old female with a PMHx of chronic pancreatitis, chronic back pain, pancreatic cysts, HTN, HLD, and arthritis who presented to the ED for worsening epigastric pain. She describes the pain as burning in nature. She denies a hx of GERD. She said the symptoms began 2 days ago which became worse. She could barely tolerate po intake. She stated she had an episode of diarrhea 1 day prior after eating a sandwich. She says she has a normal bowel movements once a day however stated she becomes constipated from time to time which she treats with stool softener. She is on opioids at home to treat her chronic back pain. PMD: Dr. Colton Gale PMHx: pancreatic cysts, HTN, spinal stenosis, HLD, arthritis PSHx: Back surgery, ex lap, last colonoscopy about 7 years ago - normal SocHx: Denies alcohol, tobacco, illicit drug use. Indicates the use of medical marijuana for pain. Allergies: NKA FamHx: denies fam hx of colon cancer Review of Systems - Constitutional Constitutional: absent: Chills, Fever - Cardiovascular Cardiovascular: absent: Chest Pain - Respiratory Respiratory: absent: Cough - Gastrointestinal Gastrointestinal: Abdominal Pain, Bloating, Change in Bowel Habits, Constipation, Diarrhea - Genitourinary Genitourinary: absent: Dysuria - Musculoskeletal Musculoskeletal: Back Pain Past Patient History - Infectious Disease Hx of Infectious Diseases: None - Tetanus Immunizations Tetanus Immunization: Up to Date - Past Social History Smoking Status: Never Smoked - CARDIAC Hx Pacemaker: No - PULMONARY Hx Respiratory Disorders: Yes Hx Pneumonia: Yes (02-21-14) - NEUROLOGICAL Hx Paralysis: No - HEENT Hx HEENT Problems: Yes ([place] B[place], wears glassees) Other/Comment: uses b/l hearing aids - RENAL Hx Chronic Kidney Disease: No - ENDOCRINE/METABOLIC Hx Endocrine Disorders: No - HEMATOLOGICAL/ONCOLOGICAL Hx Blood Transfusions: No - INTEGUMENTARY Hx Dermatological Problems: Yes (CELLULITIS BLE) Other/Comment: notes from prior visit/triage: right lower extremity edema, redness, warm, tender to touch, making it difficult to walk, was weeping 3 wks ago, +2 pitting edema, worse the last 3 days, redness from below knee to foot and right thigh - MUSCULOSKELETAL/RHEUMATOLOGICAL Hx Musculoskeletal Disorders: Yes - GASTROINTESTINAL Hx Gastrointestinal Disorders: Yes Hx Gastroesophageal Reflux: Yes Hx Pancreatitis: Yes (PANCREATIC NEOPLASM) - GENITOURINARY/GYNECOLOGICAL Hx Genitourinary Disorders: No - PSYCHIATRIC Hx Emotional Abuse: No Hx Physical Abuse: No Hx Substance Use: No - SURGICAL HISTORY Other/Comment: R knee surgery - ANESTHESIA Hx Anesthesia Reactions: No Hx Malignant Hyperthermia: No Meds Allergies/Adverse Reactions: Allergies Allergy/AdvReac Type Severity Reaction Status Date / Time No Known Allergies Allergy Verified 06/18/18 04:16 - Medications Medications: Current Medications Sodium Chloride (Sodium Chloride 0.9%) 1,000 mls @ 125 mls/hr IV .Q8H [facility]ID Last Admin: 06/18/18 05:16 Dose: 125 mls/hr Sodium Chloride (Sodium Chloride 0.9%) 1,000 mls @ 100 mls/hr IV .Q10H STA Stop: 06/18/18 16:32 Last Admin: 06/18/18 07:27 Dose: 100 mls/hr Physical Exam - Constitutional Appears: Well, No Acute Distress - Head Exam Head Exam: ATRAUMATIC, NORMAL INSPECTION - Eye Exam Eye Exam: EOMI, Normal appearance, PERRL. absent: Scleral icterus - ENT Exam ENT Exam: Mucous Membranes Moist - Neck Exam Neck exam: Positive for: Normal Inspection - Respiratory Exam Respiratory Exam: Clear to Auscultation Bilateral. absent: Rales, Rhonchi, Wheezes - Cardiovascular Exam Cardiovascular Exam: REGULAR RHYTHM, +S1, +S2. absent: Tachycardia, JVD, Systolic Murmur - GI/Abdominal Exam GI & Abdominal Exam: Hypoactive Bowel Sounds, Soft. absent: Distended, Firm, Guarding, Hernia - Extremities Exam Extremities exam: Positive for: normal inspection. Negative for: calf tenderness - Neurological Exam Neurological exam: Alert, Oriented x3 - Psychiatric Exam Psychiatric exam: Normal Affect, Normal Mood - Skin Skin Exam: Normal Color, Warm Results - Vital Signs Recent Vital Signs: Last Vital Signs Temp 97.7 F 06/18/18 10:05 Pulse 72 06/18/18 10:05 Resp 18 06/18/18 10:05 BP 175/73 H 10/22/18 10:05 Pulse Ox 97 06/18/18 10:05 - Labs Result Diagrams: 06/18/18 04:30 06/18/18 04:30 Labs: Laboratory Results - last 24 hr 06/18/18 06/18/18 06/18/18 04:30 04:30 05:00 WBC 8.2 D RBC 4.42 Hgb 14.3 Hct 42.4 MCV 95.9 MCH 32.4 MCHC 33.7 RDW 13.3 Plt Count 204 MPV 11.2 H Sodium 140 Potassium 3.2 L Chloride 104 Carbon Dioxide 27 Anion Gap 12 BUN 22 H Creatinine 0.6 L Est GFR ( Amer) > 60 Est GFR (Non-Af Amer) > 60 Random Glucose 110 Calcium 9.4 Total Bilirubin 0.6 AST 37 H ALT 36 Alkaline Phosphatase 148 H D Total Protein 7.6 Albumin 4.3 Globulin 3.4 Albumin/Globulin Ratio 1.3 Amylase 63 Lipase 136 Assessment & Plan - Assessment and Plan (Free Text) Plan: Mrs Gerber is a 83 year old female with a PMHx of chronic pancreatitis, chronic back pain, pancreatic cysts, HTN, HLD, and arthritis who presented to the ED for worsening burning epigastric pain: Constipation -on opioids at home for chronic pain -last colonoscopy approx 8 years ago -CT abd/pelvis w/o contrast: * No acute findings related to/accounting for the clinical presentation. Additional benign and/or incidental findings described above. No significant interval change compared to the prior examination(s). -Ultrasound abd/pelvis: * Dilatation of the common bile duct which could be due to advanced age. No evidence of cholelithiasis or choledocholithiasis. -NPO and IVF -agree with mag citrate and fleet enema Case discussed with Dr Lacy <Easton Lacy V - Last Filed: 06/18/18 23:35> Meds - Medications Medications: Current Medications Atenolol (Tenormin) 50 mg PO DAILY [facility] Atorvastatin Calcium (Lipitor) 10 mg PO DIN [facility] Docusate Sodium (Colace) 200 mg PO QAM [facility] Sodium Chloride (Sodium Chloride 0.9%) 1,000 mls @ 125 mls/hr IV .Q8H [facility] Last Admin: 06/18/18 21:26 Dose: 125 mls/hr Lisinopril (Zestril) 10 mg PO DAILY [facility] Non-Formulary Medication (Hydrocodone/Acetaminophen [Vicodin Es 7.5-300 Mg Tablet]) 1 tab PO BID PRN PRN Reason: Pain, severe (8-10) Non-Formulary Medication (Lipase/Protease/Amylase [Princess Bob 24,000 Units C apsule]) 1 cap PO TID [facility] Pantoprazole Sodium (Protonix Ec Tab) 40 mg PO 0600,1600 [facility] Spironolactone (Aldactone) 25 mg PO BID [facility]ID Results - Vital Signs Recent Vital Signs: Last Vital Signs Temp 98.5 F 06/18/18 22:52 Pulse 76 06/18/18 22:52 Resp 20 06/18/18 22:52 BP 197/100 H 06/18/18 22:52 Pulse Ox 99 06/18/18 22:52 - Labs Result Diagrams: 06/18/18 04:30 06/18/18 04:30 Labs: Laboratory Results - last 24 hr 06/18/18 06/18/18 06/18/18 04:30 04:30 05:00 WBC 8.2 D RBC 4.42 Hgb 14.3 Hct 42.4 MCV 95.9 MCH 32.4 MCHC 33.7 RDW 13.3 Plt Count 204 MPV 11.2 H Sodium 140 Potassium 3.2 L Chloride 104 Carbon Dioxide 27 Anion Gap 12 BUN 22 H Creatinine 0.6 L Est GFR ( Amer) > 60 Est GFR (Non-Af Amer) > 60 Random Glucose 110 Calcium 9.4 Total Bilirubin 0.6 AST 37 H ALT 36 Alkaline Phosphatase 148 H D Total Protein 7.6 Albumin 4.3 Globulin 3.4 Albumin/Globulin Ratio 1.3 Amylase 63 Lipase 136 Attending/Attestation - Attestation I have personally seen and examined this patient.: Yes I have fully participated in the care of the patient.: Yes I have reviewed all pertinent clinical information: Yes Notes (Text): This is an addendum to GI consult report dictated by the Parts Assembler.The patient was seen and evaluated earlier. Medical records, lab studies, imagings were reviewed. Last 24 hours events reviewed. Agreed with the above treatment plan as outlined in Parts Assembler 's notes with the addition of the following In addition to the following This patient was evaluated in [facility] for pancreatic cyst in the past This patient was seen earlier son was at bedside Admitted with epigastric discomfort Worsening in the past few days On chronic pain medication for back pain Patient is going through bowl clearance for constipation CT scan was reviewed Start clear liquid diet and Consider advancing the diet on clinical course if any worsening of the symptoms or persistence of severe epigastric pain would consider EGD 06/18/18 23:29
--- NOTE | 2018-06-18 12:06 | CT ---
Date of service: 06/18/2018 PROCEDURE: CT Abdomen and Pelvis without intravenous contrast HISTORY: pain COMPARISON: 05/22/2017. CT abdomen and pelvis. June 18, 2018 abdominal ultrasound TECHNIQUE: Unenhanced. Neither IV nor oral contrast administered Radiation dose: Total exam DLP = 361.22 mGy-cm. This CT exam was performed using one or more of the following dose reduction techniques: Automated exposure control, adjustment of the mA and/or kV according to patient size, and/or use of iterative reconstruction technique. FINDINGS: LOWER THORAX: Subsegmental infiltrate right middle lobe a stable finding. Trace pericardial effusion. LIVER: Unremarkable. No gross lesion or ductal dilatation. GALLBLADDER AND BILE DUCTS: Unremarkable. PANCREAS: Stable cysts in the pancreas less conspicuous on the current study related to absence of contrast enhancement. SPLEEN: Unremarkable. ADRENALS: Unremarkable. No mass. KIDNEYS AND URETERS: Unremarkable. No hydronephrosis. No solid mass. VASCULATURE: Tortuous non aneurysmal abdominal aorta. Atherosclerotic calcification and mural plaque present. Findings are seen throughout the aorta BOWEL: Diverticulosis without an acute inflammatory component or other associated pathologic process. APPENDIX: Unremarkable. Normal appendix. PERITONEUM: Unremarkable. No free fluid. No free air. LYMPH NODES: Unremarkable. No enlarged lymph nodes. BLADDER: Unremarkable. REPRODUCTIVE: Unremarkable. BONES: No acute fracture. Stable orthopedic hardware lumbar spine. Sclerotic foci identified proximal femurs more likely bony a infarcts than neoplasm. These are stable findings. Stable orthopedic hardware, partial fenestrated screw greater trochanter left femur unchanged. OTHER FINDINGS: None. IMPRESSION: No acute findings related to/accounting for the clinical presentation. Additional benign and/or incidental findings described above. No significant interval change compared to the prior examination(s). Concordant results (preliminary interpretation) provided by [employer]. Procedure Completed: 04:56 Preliminary Report: Dictated and Authenticated: 06:06. Final Interpretation: 12:02.
[2018-06-18] MEDS ORDERED: Influenza Vaccine 60 mcg/0.5 mL SYR (4YR UP) IM ONE (13:34)
[2018-06-18] MEDS ORDERED: Pneumococcal 23-Valent Vaccine IM ONE (13:34)
[2018-06-18] MEDS ORDERED: ACETAMINOPHEN PO PRN (18:21)
[2018-06-18] MEDS ORDERED: [UNRECOGNIZED DRUG - OTHER] PO PRN (18:21)
[2018-06-18] MEDS ORDERED: HYDROCODONE PO PRN (18:21)
[2018-06-19] MEDS ORDERED: Morphine 2 mg/ml ISec IVP ONE ×2 (04:27→09:41)
[2018-06-19] MEDS ORDERED: Morphine 4 mg/ml ISec IVP ONE (04:45)
[2018-06-19 06:41] LABS: BASO # 0.07 K/mm3 (0.0-2.0); EOS # 0.2 (0.0-0.7); EOS % 2.6 % (1.5-5.0); GRAN # 4.89 (1.4-6.5); GRAN % 69.6 % (50.0-68.0); HEMOGLOBIN 14.2 g/dL (12.0-16.0); LYMPH % 13.9 % (22.0-35.0); MEAN CORPUSCULAR HEMOGLOBIN 32.3 pg (25.0-35.0); MEAN CORPUSCULAR HGB CONC 33.3 g/dl (31.0-37.0); MEAN PLATELET VOLUME 10.8 fl (7.0-11.0); MONO # 0.9 (0.1-0.6); MONO % 12.9 % (1.0-6.0); RBC 4.4 10^6/uL (3.5-6.1); RED CELL DISTRIBUTION WIDTH 13.5 % (11.5-14.5)
[2018-06-19 07:20] LABS: ALB/GLOB RATIO 1.2 (1.1-1.8); ALBUMIN 3.7 g/dL (3.0-4.8); ALT/SGPT 38 U/L (7-56); AMYLASE 49 U/L (35-125); AST/SGOT 34 U/L (14-36); BLOOD UREA NITROGEN 13 mg/dL (7-21); CALCIUM 9.2 mg/dL (8.4-10.5); GFR NON-AFRICAN AMERICAN > 60
[2018-06-19] MEDS ORDERED: Pantoprazole 40 mg EC Tab PO SCH (07:30)
--- NOTE | 2018-06-19 08:18 | CP.PCM.PN ---
Subjective - Date & Time of Evaluation Date of Evaluation: 06/19/18 Time of Evaluation: 08:14 - Subjective Subjective: Surgery: Dr. Gale Patient complains of persistent chronic pain. She report bowel movement last night. Denies n/v/f/c. Objective - Vital Signs/Intake and Output Vital Signs (last 24 hours): Temp Pulse Resp BP Pulse Ox 98.5 F 76 20 197/100 H 99 06/18/18 22:52 06/18/18 22:52 06/18/18 22:52 06/18/18 22:52 06/18/18 22:52 Intake and Output: 06/19/18 06/19/18 06:59 18:59 Intake Total 1500 Balance 1500 - Medications Medications: Current Medications Atenolol (Tenormin) 50 mg PO DAILY [facility] Atorvastatin Calcium (Lipitor) 10 mg PO DIN DAVID Docusate Sodium (Colace) 200 mg PO QAM [facility] Sodium Chloride (Sodium Chloride 0.9%) 1,000 mls @ 125 mls/hr IV .Q8H [facility] Last Admin: 06/18/18 21:26 Dose: 125 mls/hr Lidocaine (Lidoderm) 1 ea TD DAILY [facility] Lisinopril (Zestril) 10 mg PO DAILY [facility] Non-Formulary Medication (Hydrocodone/Acetaminophen [Vicodin Es 7.5-300 Mg Tablet]) 1 tab PO BID PRN PRN Reason: Pain, severe (8-10) Non-Formulary Medication (Lipase/Protease/Amylase [Princess Bob 24,000 Units Capsule]) 1 cap PO TID [facility] Pantoprazole Sodium (Protonix Ec Tab) 40 mg PO 0600,1600 [facility] Last Admin: 06/19/18 07:48 Dose: 40 mg Spironolactone (Aldactone) 25 mg PO BID [facility] - Labs Labs: 06/19/18 06:10 06/19/18 06:10 - Constitutional Appears: Non-toxic, No Acute Distress - Head Exam Head Exam: ATRAUMATIC, NORMOCEPHALIC - Eye Exam Eye Exam: EOMI, Normal appearance - Respiratory Exam Respiratory Exam: NORMAL BREATHING PATTERN. absent: Respiratory Distress - Cardiovascular Exam Cardiovascular Exam: REGULAR RHYTHM. absent: Tachycardia - GI/Abdominal Exam GI & Abdominal Exam: Soft. absent: Distended, Tenderness - Psychiatric Exam Psychiatric exam: Agitated - Skin Skin Exam: Dry, Warm Assessment and Plan - Assessment and Plan (Free Text) Assessment: 83 y/o female w/ chronic opioid induced constipation Plan: -+ BM yesterday, cont. bowel reg -back pain chronic, consider pain management as outpatient. add lidoderm patch for local relief -possible d/c [facility] PGY4
[2018-06-19 08:57] VITALS: RESP 18; TEMP 97.6; O2SAT 98
[2018-06-19] MEDS ORDERED: AMYLASE PO SCH ×2 (10:00→10:16)
[2018-06-19] MEDS ORDERED: Non Formulary Medication (Omeprazole [Omeprazole] 40 MG) PO SCH (10:00)
[2018-06-19] MEDS ORDERED: Non Formulary Medication (Simvastatin [Zocor] 20 MG) PO SCH (10:00)
[2018-06-19] MEDS ORDERED: Lidocaine 5% Patch TD SCH (10:00)
[2018-06-19] MEDS ORDERED: PROTEASE PO SCH ×2 (10:00→10:16)
[2018-06-19] MEDS ORDERED: [UNRECOGNIZED DRUG - OTHER] PO SCH ×2 (10:00→10:16)
[2018-06-19] MEDS ORDERED: LIPASE PO SCH ×2 (10:00→10:16)
[2018-06-19 10:02] VITALS: BP 131/62; PULSE 78
[2018-06-19] MEDS ORDERED: [UNRECOGNIZED DRUG - OTHER] PO PRN (10:27)
[2018-06-19] MEDS ORDERED: ACETAMINOPHEN PO PRN (10:27)
[2018-06-19] MEDS ORDERED: HYDROCODONE PO PRN (10:27)
--- NOTE | 2018-06-19 12:00 | CP.PCM.PN ---
<Ihsan Alexis - Last Filed: 06/19/18 11:51> Subjective - Date & Time of Evaluation Date of Evaluation: 06/19/18 Time of Evaluation: 11:51 - Subjective Subjective: PGY-2 GI progress note for Dr Lacy Patient complained of back pain overnight and was given 1mg morphine ivp. BP has been elevated. This morning patient stated she was doing well. She complained of the liquid diet - she wanted solid foods. Stated her abdominal pain had improved. Did not offer any other complaints. Objective - Vital Signs/Intake and Output Vital Signs (last 24 hours): Temp Pulse Resp BP Pulse Ox 97.6 F 78 18 131/62 98 06/19/18 08:56 06/19/18 10:01 06/19/18 08:56 06/19/18 10:01 06/19/18 08:56 Intake and Output: 06/19/18 06/19/18 06:59 18:59 Intake Total 1500 Balance 1500 - Medications Medications: Current Medications Atenolol (Tenormin) 50 mg PO DAILY [facility] Last Admin: 06/19/18 10:01 Dose: 50 mg Atorvastatin Calcium (Lipitor) 10 mg PO DIN [facility] Docusate Sodium (Colace) 200 mg PO QAM [facility] Last Admin: 06/19/18 10:02 Dose: 200 mg Sodium Chloride (Sodium Chloride 0.9%) 1,000 mls @ 125 mls/hr IV .Q8H [facility] Last Admin: 06/18/18 21:26 Dose: 125 mls/hr Lidocaine (Lidoderm) 1 ea TD DAILY [facility] Last Admin: 06/19/18 10:02 Dose: 1 ea Lisinopril (Zestril) 10 mg PO DAILY [facility] Last Admin: 06/19/18 10:01 Dose: 10 mg Non-Formulary Medication (Lipase/Protease/Amylase [Princess Bob 24,000 Units Capsule]) 1 cap PO TID [facility] Non-Formulary Medication (Hydrocodone/Acetaminophen [Vicodin Es 7.5-300 Mg Tablet]) 1 tab PO BID PRN PRN Reason: Pain, severe (8-10) Pantoprazole Sodium (Protonix Ec Tab) 40 mg PO 0600,1600 [facility] Last Admin: 06/19/18 07:48 Dose: 40 mg Spironolactone (Aldactone) 25 mg PO BID [facility] Last Admin: 06/19/18 10:01 Dose: 25 mg - Labs Labs: 06/19/18 06:10 06/19/18 06:10 - Additional Findings Additional findings: - Constitutional Appears: Well, No Acute Distress - Head Exam Head Exam: ATRAUMATIC, NORMAL INSPECTION - Eye Exam Eye Exam: EOMI, Normal appearance, PERRL. absent: Scleral icterus - ENT Exam ENT Exam: Mucous Membranes Moist - Neck Exam Neck exam: Positive for: Normal Inspection - Respiratory Exam Respiratory Exam: Clear to Auscultation Bilateral. absent: Rales, Rhonchi, Wheezes - Cardiovascular Exam Cardiovascular Exam: REGULAR RHYTHM, +S1, +S2. absent: Tachycardia, JVD, Systolic Murmur - GI/Abdominal Exam GI & Abdominal Exam: Normoactive Bowel Sounds, Soft. absent: Distended, Firm, Guarding, Hernia - Extremities Exam Extremities exam: Positive for: normal inspection. Negative for: calf tenderness - Neurological Exam Neurological exam: Alert, Oriented x3 - Psychiatric Exam Psychiatric exam: Normal Affect, Normal Mood - Skin Skin Exam: Normal Color, Warm Assessment and Plan - Assessment and Plan (Free Text) Plan: Mrs Gerber is a 83 year old female with a PMHx of chronic pancreatitis, chronic back pain, pancreatic cysts, HTN, HLD, and arthritis who presented to the ED for worsening burning epigastric pain: Constipation -on opioids at home for chronic pain - this is likely the cause * certified surgical tech/first assistant added lidoderm patch to help reduce opioid use -received mag citrate and fleet enema and had multiple bowel movement with major improvement in abdominal discomfort -CT abd/pelvis w/o contrast: * No acute findings related to/accounting for the clinical presentation. Additional benign and/or incidental findings described above. No significant interval change compared to the prior examination(s). -Ultrasound abd/pelvis: * Dilatation of the common bile duct which could be due to advanced age. No evidence of cholelithiasis or choledocholithiasis. -advanced diet today to soft, low residue diet -continue IVF [employer] Superintendent: If tolerates soft/low residue diet for lunch and dinner today then ok for discharge from GI perspective. Patient will need an EGD outpatient - this was discussed with patient and her son. Case discussed with Dr Lacy. <Easton Lacy V - Last Filed: 06/20/18 00:08> Objective - Vital Signs/Intake and Output Vital Signs (last 24 hours): Temp Pulse Resp BP Pulse Ox 97.6 F 78 18 131/62 98 06/19/18 08:56 06/19/18 10:01 06/19/18 08:56 06/19/18 10:01 06/19/18 08:56 Intake and Output: 06/19/18 06/20/18 18:59 06:59 Intake Total 1500 Balance 1500 - Labs Labs: 06/19/18 06:10 06/19/18 06:10 Attending/Attestation - Attestation I have personally seen and examined this patient.: Yes I have fully participated in the care of the patient.: Yes I have reviewed all pertinent clinical information, including history, physical exam and plan: Yes Notes (Text): This is an addendum to GI progress report dictated by the resident care assistant.The patient was seen and examined earlier. Medical records, lab studies, imagings were reviewed. Last 24 hours events reviewed. Agreed with the above treatment plan as outlined in resident care assistant 's notes with the addition of the following 06/20/18 00:08
== END 2018-06-19 17:15 | disposition home or self-care (01) ==
LOC: ED 04:10 → ERH 06:32 → 5RNO 10:16
PROVIDERS: ADMIT Surgery; ATTEND Surgery
DX: R10.13 Epigastric pain (principal); K86.1 Other chronic pancreatitis; K59.03 Drug induced constipation; T40.2X5A Adverse effect of other opioids, initial encounter; G89.29 Other chronic pain; M54.9 Dorsalgia, unspecified; E78.5 Hyperlipidemia, unspecified; I10 Essential (primary) hypertension; K21.9 Gastro-esophageal reflux disease without esophagitis; M48.00 Spinal stenosis, site unspecified; M19.90 Unspecified osteoarthritis, unspecified site; K86.2 Cyst of pancreas; Z87.01 Personal history of pneumonia (recurrent)
CPT/HCPCS: 36415; 71045; 74176; 76700; 80053; 82150; 83690; 85025; 85027; 93005; 96361; 96374; 96375; 96376; 97116; 97161; 99285; C9113; G0378; G8978; G8979; J1885; J2270; J2405; J7030

== ENCOUNTER 2018-07-19 05:57 | Emergency (ER) | payer MEDICARE, BC ==
[2018-07-19 06:19] VITALS: BMI 24.6
[2018-07-19 07:31] LABS: BASO # 0.05 K/mm3 (0.0-2.0); BASO % 0.6 % (0.0-3.0); EOS # 0.1 (0.0-0.7); EOS % 0.6 % (1.5-5.0); GRAN # 6.29 (1.4-6.5); GRAN % 77.9 % (50.0-68.0); HEMOGLOBIN 12.8 g/dL (12.0-16.0); LYMPH # 1.1 (1.2-3.4); LYMPH % 13.3 % (22.0-35.0); MEAN CELL VOLUME 95.3 fl (80.0-105.0); MEAN CORPUSCULAR HEMOGLOBIN 31.9 pg (25.0-35.0); MEAN CORPUSCULAR HGB CONC 33.5 g/dl (31.0-37.0); MEAN PLATELET VOLUME 10.9 fl (7.0-11.0); MONO # 0.6 (0.1-0.6); MONO % 7.6 % (1.0-6.0); RBC 4.01 10^6/uL (3.5-6.1); RED CELL DISTRIBUTION WIDTH 12.9 % (11.5-14.5); WHITE BLOOD COUNT 8.1 10^3/uL (4.5-11.0)
[2018-07-19] MEDS ORDERED: Sodium Chloride 0.9% 1,000 ML IV STA (07:31)
[2018-07-19] MEDS ORDERED: Alum-Mag Hydrox-Simethicone Susp (30 mL) PO STA (07:31)
[2018-07-19] MEDS ORDERED: Atrop/Hyosc/Scopal/PB Elixir (120 ml) PO STA (07:31)
[2018-07-19 07:38] LABS: INR 1.04; PARTIAL THROMBOPLASTIN TIME 26.9 Seconds (25.1-36.5)
--- NOTE | 2018-07-19 07:40 | ED PDOC ---
Arrival/HPI - General Chief Complaint: GI Problem Time Seen by Provider: 07/19/18 06:58 Historian: Patient - History of Present Illness Narrative History of Present Illness (Text): 07/19/18 07:32 83 year old female w/ h/o pancreatitis, GERD, arthritis, hypertension, and hyperlipidemia presenting to the emergency department with abdominal pain, for 2 days. Patient states she has been experiencing burning abdominal pain with ass ociated diarrhea and some nausea. She also reports decreased PO intake. Patient states she has been taking OTC medication for her URI symptoms as well as a Z- regina. Patient denies any hematochezia, fever, chills, chest pain, shortness of breath, vomiting, neck pain, headache, dizziness, or any other complaints. Time/Duration: < week (2 days) Symptom Course: Unchanged Quality: Burning Activities at Onset: Rest Context: Home Past Medical History - Provider Review Nursing Documentation Reviewed: Yes - Infectious Disease Hx of Infectious Diseases: None - Tetanus Immunization Tetanus Immunization: Up to Date - Cardiac Hx Cardiac Disorders: Yes Hx Hypertension: Yes - Pulmonary Hx Respiratory Disorders: Yes Hx Pneumonia: Yes (02-21-14) - Neurological Hx Neurological Disorder: Yes (numbness both feet) - HEENT Hx HEENT Disorder: Yes ([place] b/l ears, denies wearing eyeglasses) Other/Comment: uses b/l hearing aids - Renal Hx Renal Disorder: No - Endocrine/Metabolic Hx Endocrine Disorders: No - Hematological/Oncological Hx Blood Disorders: No - Integumentary Hx Dermatological Disorder: Yes (CELLULITIS BLE) Other/Comment: healed sx scar lower back,multiple skin discoloratins ble, calluses to ball of right foot, healed cellulitis ble - Musculoskeletal/Rheumatological Hx Arthritis: Yes (spine) - Gastrointestinal Hx Gastrointestinal Disorders: Yes Hx Gastroesophageal Reflux: Yes Hx Pancreatitis: Yes (PANCREATIC NEOPLASM) Other/Comment: pancreatic duct polyps, chronic constipation "my whole life" stated pt, takes colace otc x2 every morning, egd 06/15/[address] quan - Genitourinary/Gynecological Hx Genitourinary Disorders: No - Psychiatric Hx Psychophysiologic Disorder: No Hx Substance Use: No - Surgical History Other/Comment: R knee replacement 06/07/12, laminectomy and fusion L3 L4 L5 Si w/rods about 9 yrs ago, had b/l bunionectomy about 30/40 yrs ago, 04/04/2016 sx for hammertoe deformity toes 4 and 5 due to osteoarthritis, 09/26/16 sx for bunionectomy, fusion implant and hammertoes 2 and 3 both sx's done by dr zee - Anesthesia Hx Anesthesia Reactions: No Hx Malignant Hyperthermia: No - Suicidal Assessment Feels Threatened In Home Enviroment: No Family/Social History - Physician Review Nursing Documentation Reviewed: Yes Family/Social History: No Known Family HX Smoking Status: Never Smoked Hx Alcohol Use: No Hx Substance Use: No Hx Substance Use Treatment: No Allergies/Home Meds Allergies/Adverse Reactions: Allergies No Known Allergies Allergy (Verified 07/19/18 06:16) Home Medications: Home Meds Medication Instructions Recorded Confirmed Atenolol [Tenormin] 50 mg PO DAILY 05/22/17 06/18/18 Lipase/Protease/Amylase [Creon Dr 1 cap PO TID 05/22/17 06/18/18 24,000 Units Capsule] Lisinopril [Zestril] 10 mg PO DAILY 05/22/17 06/18/18 Simvastatin [Zocor] 20 mg PO DAILY 05/22/17 06/18/18 Spironolactone [Aldactone] 25 mg PO BID 05/22/17 06/18/18 Docusate [Colace] 200 mg PO QAM 06/18/18 06/18/18 Hydrocodone/Acetaminophen [Vicodin 1 tab PO BID PRN 06/18/18 06/18/18 Es 300 mg-7.5 mg] Review of Systems - Physician Review All systems were reviewed & negative as marked: Yes - Review of Systems Constitutional: absent: Fevers, Night Sweats Respiratory: Cough. absent: SOB Cardiovascular: absent: Chest Pain Gastrointestinal: Abdominal Pain, Diarrhea. absent: Vomiting Musculoskeletal: absent: Neck Pain Neurological: absent: Headache, Dizziness Physical Exam Vital Signs Reviewed: Yes Vital Signs Temp Pulse Resp BP Pulse Ox 07/19/18 06:32 98.2 F 70 18 170/102 H 99 Temperature: Afebrile Blood Pressure: Hypertensive Pulse: Regular Respiratory Rate: Normal Appearance: Positive for: Well-Appearing, Non-Toxic, Comfortable Pain Distress: None Mental Status: Positive for: Alert and Oriented X 3 - Systems Exam Head: Present: Atraumatic, Normocephalic Pupils: Present: PERRL Extroacular Muscles: Present: EOMI Conjunctiva: Present: Normal Mouth: Present: Moist Mucous Membranes Neck: Present: Normal Range of Motion Respiratory/Chest: Present: Decreased Breath Sounds, Rhonchi (Bilaterally). No: Good Air Exchange (Coarse breath sounds bilaterally) Cardiovascular: Present: Regular Rate and Rhythm, Normal S1, S2. No: Murmurs Abdomen: Present: Tenderness (Diffuse abdominal tenderness) Back: Present: Normal Inspection Upper Extremity: Present: Normal Inspection. No: Cyanosis, Edema Lower Extremity: Present: Normal Inspection. No: Edema Neurological: Present: GCS=15, CN II-XII Intact, Speech Normal Skin: Present: Warm, Dry, Normal Color. No: Rashes Psychiatric: Present: Alert, Oriented x 3, Normal Insight, Normal Concentration Medical Decision Making ED Course and Treatment: 07/19/18 07:53 Impression: 83 year old female presents with abdominal pain. Plan: -- EKG --CT a/p -- Labs -- Chest X-ray -- Maalox -- -- Pepcid -- Urinalysis -- Reassess and disposition Prior Visits: Notes and results from previous visits were reviewed. Progress Notes: 07/19/18 10:36 Labs reviewed with no leukocytosis or electrolyte abnormalities noted. CT a/p pending. 07/19/18 11:07 Spoke to patient's son who is at the bedside who reports his mother feeling better and has a history of GI upset whenever she has any other illness/pain affecting her. 07/19/18 12:15 CT a/p reveals no acute obstruction, but reveals multiple pancreatic pseudocysts in which patient and family are aware of. Patient reports improvement in symptoms. She will follow up with GI and her PCP. Scripts provided. She is stable for discharge. - RAD Interpretation Narrative RAD Interpretations (Text): 07/19/18 09:16 Chest X-ray reviewed, shows: No active disease. 07/19/18 11:44 CT abdomen and pelvis reviewed, shows: No acute intra-abdominal findings There multiple cysts in the body of the pancreas as well as dilatation of the pancreatic duct. Findings most likely due to pancreatic pseudocyst. However, cystic pancreatic neoplasm cannot be excluded and follow-up is recommended Radiology Orders: 07/19/18 07:03 CHEST PORTABLE [RAD] Stat Development Specialist: Radiologist - Stas Statement The provider has reviewed the documentation as recorded by the Scribe Blas Moran Provider Scribe Attestation: All medical record entries made by the Scribe were at my direction and personally dictated by me. I have reviewed the chart and agree that the record accurately reflects my personal performance of the history, physical exam, medical decision making, and the department course for this patient. I have also personally directed, reviewed, and agree with the discharge instructions and disposition. Disposition/Present on Arrival - Present on Arrival Any Indicators Present on Arrival: No History of DVT/PE: No History of Uncontrolled Diabetes: No Urinary Catheter: No History of Decub. Ulcer: No History Surgical Site Infection Following: None - Disposition Have Diagnosis and Disposition been Completed?: Yes Diagnosis: Pancreatic pseudocyst, Bronchitis Disposition: HOME/ ROUTINE Disposition Time: 11:40 Patient Plan: Discharge Condition: STABLE Discharge Instructions (ExitCare): Chronic Bronchitis (DC) Print Language: COMORAN Additional Instructions: All medical record entries made by the Scribe were at my direction and personally dictated by me. I have reviewed the chart and agree that the record accurately reflects my personal performance of the history, physical exam, medical decision making, and the department course for this patient. I have also personally directed, reviewed, and agree with the discharge instructions and disposition. Please follow up with your PCP in 1-2 days Prescriptions: Benzonatate [Tessalon Perles] 100 mg PO Q6H #10 sgl Famotidine [Pepcid] 40 mg PO DAILY #10 tablet Methylprednisolone [Medrol Dose Pack (21 tabs)] 4 mg PO DAILY #21 mg Referrals: Ranulfo Quan MD [Staff Provider] - Follow up with primary Radha Bassett MD [Medical Doctor] - Follow up with primary [facility] [place] [Outside] - Follow up with primary Forms: [employer] (Urdu)
[2018-07-19 07:48] LABS: ALB/GLOB RATIO 1.1 (1.1-1.8); ALBUMIN 3.8 g/dL (3.0-4.8); ALT/SGPT 29 U/L (7-56); AST/SGOT 30 U/L (14-36); BLOOD UREA NITROGEN 21 mg/dL (7-21); CALCIUM 9.3 mg/dL (8.4-10.5); GFR NON-AFRICAN AMERICAN > 60; LIPASE 117 U/L (23-300)
[2018-07-19 07:51] LABS: URINE BILIRUBIN NEGATIVE (NEGATIVE); URINE BLOOD TRACE-INTACT (NEGATIVE); URINE GLUCOSE (UA) NEGATIVE (NEGATIVE); URINE LEUKOCYTE ESTERASE NEGATIVE Leu/uL (NEGATIVE); URINE PROTEIN 100 mg/dL (<30 mg/dL); URINE UROBILINOGEN 0.2 E.U./dL (<1 E.U./dL)
[2018-07-19 07:53] LABS: URINE APPEARANCE CLEAR (CLEAR); URINE COLOR LIGHT YELLOW (YELLOW)
[2018-07-19 08:12] LABS: URINE AMORPHOUS SEDIMENT SMALL; URINE EPITHELIAL CELLS 0 - 2 /hpf (0-5); URINE RBC 0 - 2 /hpf (0-2); URINE WBC 0 - 2 /hpf (0-6)
[2018-07-19] MEDS ORDERED: guaiFENesin 100 mg/5 ml Syrup UD PO STA (08:12)
[2018-07-19] MEDS ORDERED: Albuterol 0.083% Inhal Sol (2.5 mg/3 mL) UD INH STA (08:34)
[2018-07-19 08:49] LABS: B-TYPE NATRIURETIC PEPTIDE 1190 pg/mL (0-450); TROPONIN I < 0.01 ng/mL
[2018-07-19] MEDS ORDERED: Iohexol 350 MG/100 ML VIAL ONE (09:01)
--- NOTE | 2018-07-19 09:14 | RAD ---
Date of service: 07/19/2018 HISTORY: abdominal pain COMPARISON: 06/18/2018 FINDINGS: LUNGS: No active pulmonary disease. PLEURA: No significant pleural effusion identified, no pneumothorax apparent. CARDIOVASCULAR: Aortic calcification Normal cardiac size. No pulmonary vascular congestion. OSSEOUS STRUCTURES: No significant abnormalities. VISUALIZED UPPER ABDOMEN: Normal. OTHER FINDINGS: None. IMPRESSION: No active disease.
[2018-07-19 09:25] VITALS: RESP 19
[2018-07-19] MEDS ORDERED: Metoprolol 1 mg/ml Inj IVP STA (11:10)
--- NOTE | 2018-07-19 11:28 | CT ---
Date of service: 07/19/2018 PROCEDURE: CT Abdomen and Pelvis with contrast HISTORY: abdominal pain COMPARISON: 06/18/2018 TECHNIQUE: Contrast dose: 100 cc of Omni 350 Radiation dose: Total exam DLP = 317.34 mGy-cm. This CT exam was performed using one or more of the following dose reduction techniques: Automated exposure control, adjustment of the mA and/or kV according to patient size, and/or use of iterative reconstruction technique. FINDINGS: LOWER THORAX: Small pericardial effusion. Linear scarring or atelectasis at the right lung base LIVER: Unremarkable. No gross lesion or ductal dilatation. GALLBLADDER AND BILE DUCTS: Unremarkable. PANCREAS: There multiple cysts in the body of the pancreas as well as dilatation of the pancreatic duct. Findings most likely due to pancreatic pseudocyst. However, cystic pancreatic neoplasm cannot be excluded and follow-up is recommended SPLEEN: Unremarkable. ADRENALS: Unremarkable. No mass. KIDNEYS AND URETERS: Unremarkable. No hydronephrosis. No solid mass. VASCULATURE: Unremarkable. No aortic aneurysm. Aortic calcification BOWEL: Unremarkable. No obstruction. No gross mural thickening. Diverticulosis of the sigmoid colon. APPENDIX: Normal appendix. PERITONEUM: Unremarkable. No free fluid. No free air. LYMPH NODES: Unremarkable. No enlarged lymph nodes. BLADDER: Unremarkable. REPRODUCTIVE: Unremarkable. BONES: Orthopedic hardware in the lower lumbar spine OTHER FINDINGS: None. IMPRESSION: No acute intra-abdominal findings There multiple cysts in the body of the pancreas as well as dilatation of the pancreatic duct. Findings most likely due to pancreatic pseudocyst. However, cystic pancreatic neoplasm cannot be excluded and follow-up is recommended
[2018-07-19 12:10] VITALS: TEMP 97.6; O2SAT 100
[2018-07-19 12:13] VITALS: BP 149/59; PULSE 88
--- NOTE | 2018-07-20 08:23 | CARD ---
APPROVED REPORT Date of service: 07/19/2018 EKG Measurement Heart [id number] <Conclusion> Sinus rhythm with premature atrial complexes LVH by voltage, new
== END 2018-07-19 12:11 | disposition home or self-care (01) ==
LOC: ED 05:57
DX: K86.3 Pseudocyst of pancreas (principal); J40 Bronchitis, not specified as acute or chronic; I10 Essential (primary) hypertension; E78.5 Hyperlipidemia, unspecified; K21.9 Gastro-esophageal reflux disease without esophagitis
CPT/HCPCS: 71045; 74177; 80053; 81001; 83690; 83880; 84484; 85025; 85610; 85730; 87040; 87086; 93005; 94640; 96361; 96374; 96375; 99285; J7030; Q9967

== ENCOUNTER 2018-10-01 06:10 | Emergency (ER) | payer MEDICARE, BC ==
[2018-10-01 06:11] VITALS: BMI 24.6
[2018-10-01 06:34] VITALS: TEMP 97.6
[2018-10-01] MEDS ORDERED: Alum-Mag Hydrox-Simethicone Susp (30 mL) PO STA (07:21)
[2018-10-01] MEDS ORDERED: Atrop/Hyosc/Scopal/PB Elixir (120 ml) PO STA (07:21)
--- NOTE | 2018-10-01 07:22 | ED PDOC ---
Arrival/HPI - General Chief Complaint: Abdominal Pain Time Seen by Provider: 10/01/18 07:02 Historian: Patient, Family - History of Present Illness Narrative History of Present Illness (Text): 10/01/18 07:02 Lazara Gerber is an 83 year old female, with past medical history of hyperlipidemia, hypertension, pancreatitis, and arthiritis, who presents to the emergency department with complaints of abdominal pain after starting Duloxetine for neuropathy prescribed by her PMD, since Monday. Patient states that pain began 3 days ago associated with poor diet intake. Patient informs her last normal meal was two days ago. Patient informs improved symptoms with Pepcid, Tums, and Mylanta. Patient informs similar symptoms in the past and reports injections administered on previous visits to the emergency department with improvement to symptoms. Patient informs abdominal pain and diarrhea, but denies any fevers, chills, headache, dizziness, chest pain, shortness of breath, dyspnea on exertion, cough, nausea, vomiting, back pain, dysuria, rash, neck pain, or any other complaints. Past medical history: hyperlipidemia, hypertension, pancreatitis, arthiritis Past surgical history: back surgery (C-spine), neck surgery, knee replacement PMD: Dr. Grewal Time/Duration: < week Symptom Onset: Gradual Activities at Onset: Light Context: Home Past Medical History - Provider Review Nursing Documentation Reviewed: Yes - Infectious Disease Hx of Infectious Diseases: None - Tetanus Immunization Tetanus Immunization: Up to Date - Cardiac Hx Cardiac Disorders: Yes Hx Hypertension: Yes - Pulmonary Hx Respiratory Disorders: Yes Hx Pneumonia: Yes (02-21-14) - Neurological Hx Neurological Disorder: Yes (numbness both feet) - HEENT Hx HEENT Disorder: Yes ([place] b/l ears, denies wearing eyeglasses) Other/Comment: uses b/l hearing aids - Renal Hx Renal Disorder: No - Endocrine/Metabolic Hx Endocrine Disorders: No - Hematological/Oncological Hx Blood Disorders: No - Integumentary Hx Dermatological Disorder: Yes (CELLULITIS BLE) Other/Comment: healed sx scar lower back,multiple skin discoloratins ble, calluses to ball of right foot, healed cellulitis ble - Musculoskeletal/Rheumatological Hx Arthritis: Yes (spine) - Gastrointestinal Hx Gastrointestinal Disorders: Yes Hx Gastroesophageal Reflux: Yes Hx Pancreatitis: Yes (PANCREATIC NEOPLASM) Other/Comment: pancreatic duct polyps, chronic constipation "my whole life" stated pt, takes colace otc x2 every morning, egd 06/15/[address] quan - Genitourinary/Gynecological Hx Genitourinary Disorders: No - Psychiatric Hx Psychophysiologic Disorder: No Hx Substance Use: No - Surgical History Other/Comment: R knee replacement 06/07/12, laminectomy and fusion L3 L4 L5 Si w/rods about 9 yrs ago, had b/l bunionectomy about 30/40 yrs ago, 04/04/2016 sx for hammertoe deformity toes 4 and 5 due to osteoarthritis, 09/26/16 sx for bunionectomy, fusion implant and hammertoes 2 and 3 both sx's done by dr zee - Anesthesia Hx Anesthesia Reactions: No Hx Malignant Hyperthermia: No - Suicidal Assessment Feels Threatened In Home Enviroment: No Family/Social History - Physician Review Nursing Documentation Reviewed: Yes Family/Social History: No Known Family HX Smoking Status: Never Smoked Hx Alcohol Use: No Hx Substance Use: No Hx Substance Use Treatment: No Allergies/Home Meds Allergies/Adverse Reactions: Allergies No Known Allergies Allergy (Verified 10/01/18 06:19) Home Medications: Home Meds Medication Instructions Recorded Confirmed Lipase/Protease/Amylase [Princess Bob 1 cap PO TID 05/22/17 10/01/18 24,000 Units Capsule] Lisinopril [Zestril] 10 mg PO DAILY 05/22/17 10/01/18 Simvastatin [Zocor] 20 mg PO DAILY 05/22/17 10/01/18 Hydrocodone/Acetaminophen [Vicodin 1 tab PO TID 06/18/18 10/01/18 Es 300 mg-7.5 mg] Atenolol [Tenormin] 50 mg PO DAILY 10/01/18 10/01/18 amLODIPine [Norvasc] 10 mg PO DAILY 10/01/18 10/01/18 Review of Systems - Physician Review All systems were reviewed & negative as marked: Yes - Review of Systems Constitutional: absent: Fevers, Night Sweats Respiratory: absent: SOB Cardiovascular: absent: Chest Pain Gastrointestinal: Abdominal Pain, Diarrhea. absent: Vomiting Genitourinary Female: absent: Dysuria Musculoskeletal: absent: Back Pain, Neck Pain Skin: absent: Rash Neurological: absent: Headache, Dizziness Physical Exam Vital Signs Reviewed: Yes Vital Signs Temp Pulse Resp BP Pulse Ox 10/01/18 06:30 97.6 F 59 L 18 104/52 L 97 Temperature: Afebrile Blood Pressure: Normal Pulse: Regular Respiratory Rate: Normal Appearance: Positive for: Well-Appearing, Non-Toxic, Comfortable Pain Distress: None Mental Status: Positive for: Alert and Oriented X 3 - Systems Exam Head: Present: Atraumatic, Normocephalic Pupils: Present: PERRL Extroacular Muscles: Present: EOMI Conjunctiva: Present: Normal Mouth: Present: Moist Mucous Membranes Neck: Present: Normal Range of Motion Respiratory/Chest: Present: Clear to Auscultation, Good Air Exchange. No: Respiratory Distress, Accessory Muscle Use Cardiovascular: Present: Regular Rate and Rhythm, Normal S1, S2. No: Murmurs Abdomen: Present: Tenderness (Epigastric ). No: Distention, Peritoneal Signs Back: Present: Normal Inspection Upper Extremity: Present: Normal Inspection. No: Cyanosis, Edema Lower Extremity: Present: Normal Inspection. No: Edema Neurological: Present: GCS=15, CN II-XII Intact, Speech Normal Skin: Present: Warm, Dry, Normal Color. No: Rashes Psychiatric: Present: Alert, Oriented x 3, Normal Insight, Normal Concentration Medical Decision Making ED Course and Treatment: 10/01/18 07:02 Impression: Patient is a 83 year old female who presents to the Emergency department with abdominal pain status post taking medication for neuropathy. Plan: -- Labs -- -- Maalox -- Pepcid -- IV Fluids -- Reassess and disposition Prior Visits: Notes and results from previous visits were reviewed. Progress Notes: 10/01/18 07:02 Reviewed EKG: Sinus rhythm with PVC's at 62 BPM, No STEMI. 1000 CT added due to continued pain 10/01/18 12:36 tolerated PO pt notes resolution of pain likely gerd Labs, imaging unremarkable; pt notes she knows about the pseduocysts of her pancreas and that they are being monitored. clear for d/c home with return indications and f/u - EKG Interpretation Interpreted by ED Physician: Yes Type: 12 lead EKG - Medication Orders Current Medication Orders: Sodium Chloride (Sodium Chloride 0.9%) 1,000 mls @ 100 mls/hr IV .Q10H DAVID - Scribe Statement The provider has reviewed the documentation as recorded by the Stas Rooney training with Mary Lou All medical record entries made by the Stas were at my direction and personally dictated by me. I have reviewed the chart and agree that the record accurately reflects my personal performance of the history, physical exam, medical decision making, and the department course for this patient. I have also personally directed, reviewed, and agree with the discharge instructions and disposition. Disposition/Present on Arrival - Present on Arrival Any Indicators Present on Arrival: No History of DVT/PE: No History of Uncontrolled Diabetes: No Urinary Catheter: No History of Decub. Ulcer: No History Surgical Site Infection Following: None - Disposition Have Diagnosis and Disposition been Completed?: Yes Diagnosis: Gastritis Disposition: HOME/ ROUTINE Disposition Time: 12:38 Patient Problems: Current Active Problems Problem Status Onset Gastritis Acute Discharge Instructions (ExitCare): Gastritis (DC) Additional Instructions: LAZARA GERBER, thank you for letting us take care of you today. Your provider was Florentino Shaw and you were treated for unable to eat due to meds. The emergency medical care you received today was directed at your acute symptoms. If you were prescribed any medication, please fill it and take as directed. It may take several days for your symptoms to resolve. Return to the Emergency Department if your symptoms worsen, do not improve, or if you have any other problems. Please contact your doctor or call one of the physicians/clinics you have been referred to that are listed on the Patient Visit Information form that is included in your discharge packet. Bring any paperwork you were given at discharge with you along with any medications you are taking to your follow up visit. Our treatment cannot replace ongoing medical care by a primary care provider outside of the emergency department. Thank you for allowing the [facility] team to be part of your care today. If you had an X-Ray or CT scan: A Radiologist will review the ED reading if any change in treatment is needed we will contact you. If you had a blood, urine, or wound culture: It will take several days for the results, if any change in treatment is needed we will contact you. If you had an STI test: It will take 48 hours for the results. Please call after 1 week if you have not heard back. Prescriptions: Famotidine [Pepcid] 20 mg PO Q24H PRN 6 Days #6 tab PRN Reason: Gi Distress Referrals: Jerome Gale MD [Primary Care Provider] - Follow up with primary Forms: [employer] (Malay)
[2018-10-01] MEDS ORDERED: Sodium Chloride 0.9% 1,000 ML IV SCH (07:30)
[2018-10-01 08:20] LABS: BASO # 0.04 K/mm3 (0.0-2.0); BASO % 0.5 % (0.0-3.0); EOS # 0.1 (0.0-0.7); EOS % 0.9 % (1.5-5.0); LYMPH # 1.2 (1.2-3.4); LYMPH % 15.2 % (22.0-35.0); MEAN CORPUSCULAR HGB CONC 33.7 g/dl (31.0-37.0); MEAN PLATELET VOLUME 11.2 fl (7.0-11.0); MONO # 1.1 (0.1-0.6); MONO % 13.6 % (1.0-6.0); RBC 4.37 10^6/uL (3.5-6.1); RED CELL DISTRIBUTION WIDTH 13.2 % (11.5-14.5)
[2018-10-01 08:21] LABS: VENOUS BLOOD GAS BASE EXCESS 1.3 mmol/L (0.0-2.0); VENOUS BLOOD GAS PO2 48 mm/Hg (30-55); VENOUS BLOOD PH 7.37 (7.32-7.43)
[2018-10-01 08:29] LABS: ALB/GLOB RATIO 1.2 (1.1-1.8); ALBUMIN 4.1 g/dL (3.0-4.8); ALT/SGPT 23 U/L (7-56); AST/SGOT 35 U/L (14-36); BLOOD UREA NITROGEN 24 mg/dL (7-21); CALCIUM 9.8 mg/dL (8.4-10.5); GFR NON-AFRICAN AMERICAN 60; LIPASE 225 U/L (23-300)
[2018-10-01 08:40] LABS: TROPONIN I 0.03 ng/mL
[2018-10-01] MEDS ORDERED: Iohexol 300 100 ML IJ ONE (09:35)
--- NOTE | 2018-10-01 10:17 | CARD ---
APPROVED REPORT Date of service: 10/01/2018 EKG Measurement Heart [id number] <Conclusion> Sinus rhythm with premature atrial complexes Otherwise normal ECG
--- NOTE | 2018-10-01 12:32 | CT ---
Date of service: 10/01/2018 PROCEDURE: CT Abdomen and Pelvis with contrast HISTORY: abd pain, epigastric COMPARISON: 07/19/2018 CT TECHNIQUE: Contrast dose: 100 cc of Omni 300 Radiation dose: Total exam DLP = 275.86 mGy-cm. This CT exam was performed using one or more of the following dose reduction techniques: Automated exposure control, adjustment of the mA and/or kV according to patient size, and/or use of iterative reconstruction technique. FINDINGS: LOWER THORAX: Unremarkable. LIVER: Unremarkable. No gross lesion or ductal dilatation. GALLBLADDER AND BILE DUCTS: Unremarkable. PANCREAS: There multiple cysts in the body of the pancreas as well as dilatation of the distal pancreatic duct. The findings are unchanged. There is no evidence of acute pancreatitis SPLEEN: Unremarkable. ADRENALS: Unremarkable. No mass. KIDNEYS AND URETERS: Unremarkable. No hydronephrosis. No solid mass. VASCULATURE: Unremarkable. No aortic aneurysm. Aortic calcification BOWEL: Unremarkable. No obstruction. No gross mural thickening. Mild diverticulosis of the sigmoid colon APPENDIX: Normal appendix. PERITONEUM: Unremarkable. No free fluid. No free air. LYMPH NODES: Unremarkable. No enlarged lymph nodes. BLADDER: Unremarkable. REPRODUCTIVE: Unremarkable. BONES: Hardware is seen in the lower lumbar spine. OTHER FINDINGS: None. IMPRESSION: No acute findings
[2018-10-01 12:59] VITALS: BP 140/70; PULSE 64; RESP 20; O2SAT 99
== END 2018-10-01 13:00 | disposition home or self-care (01) ==
LOC: ED 06:10
DX: K29.70 Gastritis, unspecified, without bleeding (principal); E78.5 Hyperlipidemia, unspecified
CPT/HCPCS: 74177; 80053; 82803; 83690; 84484; 85025; 93005; 96361; 96374; 99285; J7030; Q9967

== ENCOUNTER 2018-11-26 11:45 | Outpatient (CLI) | payer MEDICARE, BC | END 2018-11-26 11:46 | disposition home or self-care (01) | LOC: RAD 11:45 | DX: M47.20 Other spondylosis with radiculopathy, site unspecified (principal) ==

== ENCOUNTER 2018-12-21 09:00 | Day surgery (SDC) | payer MEDICARE, BC ==
[2018-12-19 08:25] VITALS: BMI 24.2
[2018-12-21 09:46] LABS: BASO # 0.05 {null, K/mm3} (0.0-2.0); BASO % 0.9 % (0.0-3.0); EOS # 0.1 (0.0-0.7); EOS % 2.6 % (1.5-5.0); HEMOGLOBIN 12.5 g/dL (12.0-16.0); LYMPH # 1.1 (1.2-3.4); LYMPH % 20.8 % (22.0-35.0); MEAN CELL VOLUME 97.4 fl (80.0-105.0); MEAN CORPUSCULAR HEMOGLOBIN 31.9 pg (25.0-35.0); MEAN CORPUSCULAR HGB CONC 32.7 g/dl (31.0-37.0); MEAN PLATELET VOLUME 9.8 fl (7.0-11.0); MONO # 0.6 (0.1-0.6); MONO % 11.5 % (1.0-6.0); RBC 3.92 {null, 10^6/uL} (3.5-6.1); RED CELL DISTRIBUTION WIDTH 12.9 % (11.5-14.5); WHITE BLOOD COUNT 5.4 {null, 10^3/uL} (4.5-11.0)
[2018-12-21 09:47] VITALS: O2SAT 99
[2018-12-21 09:55] LABS: ALB/GLOB RATIO 1.2 (1.1-1.8); ALBUMIN 3.9 g/dL (3.0-4.8); ALT/SGPT 18 U/L (7-56); AMYLASE 73 U/L (35-125); AST/SGOT 33 U/L (14-36); BLOOD UREA NITROGEN 23 mg/dL (7-21); CALCIUM 9.5 mg/dL (8.4-10.5); GAMMA GLUTAMYL TRANSPEPTIDASE 14 U/L (8-78); GFR NON-AFRICAN AMERICAN > 60; LIPASE 96 U/L (23-300); PARTIAL THROMBOPLASTIN TIME 32.6 Seconds (26.9-38.3); PROTHROMBIN TIME 11.3 SECONDS (9.4-12.5)
[2018-12-21] MEDS ORDERED: Propofol 10 mg/ml 2,000 MG/200 ML VIAL ONE (10:29)
[2018-12-21] MEDS ORDERED: Sodium Chloride 0.9% 1,000 ML IV SCH (10:30)
[2018-12-21] MEDS ORDERED: Propofol 10 mg/ml Inj (20 ML) ONE (10:44)
[2018-12-21] MEDS ORDERED: Labetalol 5mg/ml (4ml) ONE (11:47)
[2018-12-21 13:58] VITALS: BP 151/65; PULSE 83; RESP 18; TEMP 98.7
== END 2018-12-21 14:15 | disposition home or self-care (01) ==
LOC: ENDO 09:00
PROVIDERS: ATTEND Internal Medicine Gastroenterology
DX: K29.50 Unspecified chronic gastritis without bleeding (principal); K86.2 Cyst of pancreas; K86.89 Other specified diseases of pancreas; K83.8 Other specified diseases of biliary tract
CPT/HCPCS: 36415; 43237; 43239; 80053; 82150; 82977; 83690; 85025; 85610; 85730; 88305; 88342; J2704 ×2; J7030; J7040